=== PATIENT | female | born 1990 | race Caucasian/White ===

== ENCOUNTER 2016-09-23 11:48 | Emergency (ER) | payer BC, OTHER ==
[~2016-09-23] VITALS: Ht 175.3 cm; Wt 71.5 kg
[~2016-09-23 11:48] MED LIST: BCPILLS PO
[2016-09-23 11:55] VITALS: TEMP 36.8; Ht 175.3 cm; Wt 71.5 kg
[2016-09-23] MEDS ORDERED: SODIUM CHLORIDE 0.9% 1000ML 1,000 ML IV STA (12:57)
[2016-09-23] MEDS ORDERED: ONDANSETRON INJ 2 MG/ML 2 ML VIAL IV STA ×2 (12:57→14:55)
[2016-09-23] MEDS ORDERED: MoRPHine SULFATE 4 MG/ML 1 ML CARP\\VIAL IV PRN (13:00)
[2016-09-23 13:06] LABS: BASO % 0.6 %; BASO ABS # 0.03 K/uL (0-0.2); COMPLETE YES; EOS % 7.1 %; HEMATOCRIT 42.5 % (37-47); IG% 0.2 %; LYMPH % 31.7 %; LYMPH ABS # 1.52 K/uL (1.2-3.4); MEAN CELL VOLUME 92.4 fL (80-100); MEAN CORPUSCULAR HEMOGLOBIN 32.2 pg (25-34); MEAN CORPUSCULAR HGB CONC 34.8 g/dl (32-36); MEAN PLATELET VOLUME 9.6 fL (7.4-10.4); MONO % 8.4 %; PLATELET COUNT 199 K/uL (130-400); WHITE BLOOD COUNT 4.79 K/uL (4.8-10.8)
[2016-09-23 13:15] LABS: BUN/CREATININE RATIO 14.8 (10-20); CALCIUM 8.9 mg/dl (8.5-10.1); CREATININE 0.8 mg/dl (0.60-1.20); POTASSIUM 3.8 mmol/L (3.5-5.1)
--- NOTE | 2016-09-23 13:32 | DIAGNOSTIC IMAGING REPORT ---
CHEST AND ABDOMEN 2 VIEWS HISTORY: Generalized abdominal pain. COMPARISON: Abdomen and pelvis CT 03/04/2015. FINDINGS: The lungs are clear. The cardiomediastinal silhouette is within normal limits. There is no pneumoperitoneum or pneumatosis. The bowel gas pattern is unremarkable. No evidence for bowel obstruction. Calcifications in the deep pelvis favor phleboliths. There is also suture material within the right lower quadrant prior appendectomy. No renal calculi. Gas-filled 4.8 x 3.9 cm structure within the deep pelvis which may represent vaginal or rectal foreign body. This could represent a contraceptive device. IMPRESSION: No acute cardiopulmonary process. No evidence for bowel obstruction. Gas-filled 4.8 x 3.9 cm structure within the deep pelvis which may represent vaginal or rectal foreign body. This could represent a contraceptive device. Clinical correlation recommended. Electronically signed by: Kulwinder Montoya M.D. 09/23/2016 1:31 PM Dictated Date/Time: 09/23/2016 1:24 PM
[2016-09-23 13:40] LABS: PREG INTERNAL NEGATIVE QC NEG CLEAR BACKGROUND; PREG INTERNAL POSITIVE QC POS CONTROL LINE
[2016-09-23 13:41] LABS: URINE APPEARANCE CLEAR (CLEAR); URINE BILIRUBIN NEG (NEG); URINE COLOR YELLOW; URINE NITRITE NEG (NEG); URINE SPECIFIC GRAVITY 1.021 (1.000-1.030); UROBILINOGEN NEG (NEG)
[2016-09-23 13:48] LABS: MANUAL MICROSCOPIC REQUIRED? NO; REVIEW REQ? NO
[2016-09-23] MEDS ORDERED: MoRPHine SULFATE 10 MG/ML CARP/VIAL IV STA (14:03)
[2016-09-23] MEDS ORDERED: OPTIRAY 320 IV PRN (15:45)
--- NOTE | 2016-09-23 16:57 | DIAGNOSTIC IMAGING REPORT ---
CT ABD/PELVIS IV AND ORAL CONT CLINICAL HISTORY: acute left-sided abdominal pain COMPARISON STUDY: 03/04/2015 TECHNIQUE: Following the IV administration of 119 mL of Optiray-320, CT scan of the abdomen and pelvis was performed from the lung bases to the proximal femurs. Images are reviewed in the axial, sagittal, and coronal planes. IV contrast was administered without complication. CT DOSE: 346.81 mGy.cm FINDINGS: Lower chest: The heart is normal in size and configuration, without pericardial effusion. The lung bases and pleural spaces are clear. Liver: The contrast-enhanced liver is normal in size, contour, and attenuation. There is no intrahepatic biliary ductal dilatation. The hepatic veins and portal veins are patent. Gallbladder: Unremarkable. Spleen: Normal in size and attenuation. Pancreas: Unremarkable. Adrenal glands: Unremarkable. Kidneys: There is symmetric renal cortical enhancement. The kidneys are normal in size without hydronephrosis. Bowel: There are no transition zones indicate bowel obstruction. By history the appendix is absent. There is no acute diverticulitis. There is no pathologic bowel wall thickening. Peritoneum: No free air is visualized. There is minimal free pelvic fluid likely physiologic. Vasculature: The abdominal aorta is normal in course and caliber. Adenopathy: None. Pelvic viscera: There is an indwelling tampon. No pathologic ovarian masses are visualized. Skeletal structures: No destructive osseous lesions are seen. IMPRESSION: 1. No acute intra-abdominal or pelvic findings 2. No evidence of bowel obstruction. No evidence of free air 3. No acute inflammatory changes Electronically signed by: Kevin Keys M.D. 09/23/2016 4:56 PM Dictated Date/Time: 09/23/2016 4:52 PM
[2016-09-23] MEDS ORDERED: ACETAMINOPHEN 500 MG TAB PO ONE (17:21)
[2016-09-23 17:36] VITALS: BP 107/68; PULSE 73; O2SAT 100
[2016-09-23] MEDS ORDERED: NURSING VERBAL MED ORDER ONE (17:45)
--- NOTE | 2016-09-24 10:10 | EMERGENCY ROOM VISIT NOTE ---
ED Visit Note First contact with patient: 12:27 Chief Complaint: Abdominal pain. History of Present Illness: Ms. Staley is a 26 year-old white female who ambulates into the ED accompanied by male friend complaining left mid to upper quadrant abdominal pain. Historically patient reports she is status post appendectomy. Patient reports she was in her [facility] provider's office today Dr. Champagne and was referred to the ED for acute onset of abdominal pain that started 2 days ago for further evaluation and care. Patient reports a acute onset of left upper quadrant abdominal pain that started approximately 2 days ago. Since that time the pain has been constant. The pain is currently described as sharp. The pain is radiating minimally radiating into the back. She rates her discomfort 4/10 at rest. The pain worsens with ambulation and after eating. Her pain is slightly improved when she is lying semierect and still. She has been taken for [id number] pain pain without relief. Associated with the pain there has been chills, nausea, one episode of vomiting , 4-5 episodes of watery stools and a mild decreased appetite. Patient denies fevers, sweats, skin eruptions, skin color changes, upper respiratory tract symptoms, shortness of breath, chest pain, constipation, rectal bleeding, black/tarry stools, urinary symptoms, hematuria, vaginal bleeding, vaginal discharge, back/flank pain. Review of Systems: As noted above in history of present illness. All body systems were reviewed and found to be negative as noted above. Past Medical History: As noted above, asthma. Current Medications: control. Allergies to Medications: Patient denies. Social History: Patient is not employed; she feels safe in her home environment ; she denies tobacco use and admits to alcohol use. Physical Examination: Vital Signs: Date Time Temp Pulse Resp B/P Pulse Ox O2 Delivery O2 Flow Rate FiO2 09/23/16 17:36 73 16 107/68 100 Room Air 09/23/16 16:58 72 16 111/71 97 Room Air 09/23/16 15:00 73 16 102/67 98 Room Air 09/23/16 13:31 69 16 126/82 98 Room Air 09/23/16 11:55 36.8 86 17 110/86 98 Room Air GENERAL: 26-year-old female in mild to moderate distress due to pain, nontoxic- appearing, afebrile and hemodynamically stable. NEUROLOGICAL: Awake, alert and oriented to person, place and time. Answering questions appropriately and following commands. Normal gait. Good hand eye coordination. SKIN: Warm, dry and pink. No soft tissue eruptions or trauma noted. HEENT: Atraumatic and normocephalic. PERRL. Sclera white and conjunctiva pink. Oral cavity moist and pink. Pharynx is nonerythematous or edematous. Speech normal. No lymphadenopathy. Trachea midline. No jugular venous distention. BACK: No tenderness over the bony spine. No CVA tenderness. THORAX: Lungs sounds are clear to auscultation and equal bilaterally with symmetrical chest wall. No wheezing, rales or rhonchi. No crepitus, tenderness , subcutaneous air or deformities noted. HEART: Regular rate and rhythm. No gallops, rubs or murmurs are appreciated. ABDOMEN: Flat and soft with diffuse abdominal tenderness more prominent in the left mid and upper quadrants area with minimal guarding. Decreased bowel sounds in all quadrants. No rigidity or organomegaly. EXTREMITIES: Moves all extremities well on command and with purpose. All distal neurovascular statuses are intact and equal bilaterally. ED Course: Patient is assessed as noted above. Laboratory Testing: Test 09/23/16 12:10 09/23/16 13:35 Range/Units White Blood Count 4.79 4.8-10.8 K/uL Red Blood Count 4.60 4.2-5.4 M/uL Hemoglobin 14.8 12.0-16.0 g/dL Hematocrit 42.5 37-47 % Mean Corpuscular Volume 92.4 80-100 fL Mean Corpuscular Hemoglobin 32.2 25-34 pg Mean Corpuscular Hemoglobin Concent 34.8 32-36 g/dl Platelet Count 199 130-400 K/uL Mean Platelet Volume 9.6 7.4-10.4 fL Neutrophils (%) (Auto) 52.0 % Lymphocytes (%) (Auto) 31.7 % Monocytes (%) (Auto) 8.4 % Eosinophils (%) (Auto) 7.1 % Basophils (%) (Auto) 0.6 % Neutrophils # (Auto) 2.49 1.4-6.5 K/uL Lymphocytes # (Auto) 1.52 1.2-3.4 K/uL Monocytes # (Auto) 0.40 0.11-0.59 K/uL Eosinophils # (Auto) 0.34 0-0.5 K/uL Basophils # (Auto) 0.03 0-0.2 K/uL RDW Standard Deviation 40.3 36.4-46.3 fL RDW Coefficient of Variation 12.0 11.5-14.5 % Immature Granulocyte % (Auto) 0.2 % Immature Granulocyte # (Auto) 0.01 0.00-0.02 K/uL Sodium Level 135 136-145 mmol/L Potassium Level 3.8 3.5-5.1 mmol/L Chloride Level 101 98-107 mmol/L Carbon Dioxide Level 27 21-32 mmol/L Anion Gap 7.0 3-11 mmol/L Blood Urea Nitrogen 12 7-18 mg/dl Creatinine 0.80 0.60-1.20 mg/dl Est Creatinine Clear Calc Drug Dose 112.4 ml/min Estimated GFR () 118.8 Estimated GFR (Non- 102.5 BUN/Creatinine Ratio 14.8 10-20 Random Glucose 86 70-99 mg/dl Calcium Level 8.9 8.5-10.1 mg/dl Total Bilirubin 0.5 0.2-1 mg/dl Direct Bilirubin 0.1 0-0.2 mg/dl Aspartate Amino Transf (AST/SGOT) 14 15-37 U/L Alanine Aminotransferase (ALT/SGPT) 19 12-78 U/L Alkaline Phosphatase 50 45-117 U/L Total Protein 7.8 6.4-8.2 gm/dl Albumin 3.8 3.4-5.0 gm/dl Lipase 198 73-393 U/L Human Chorionic Gonadotropin, Qual NEG NEG Urine Color YELLOW Urine Appearance CLEAR CLEAR Urine pH 8.0 4.5-7.5 Urine Specific [place] 1.021 1.000-1.030 Urine Protein NEG NEG Urine Glucose (UA) NEG NEG Urine Ketones NEG NEG Urine Occult Blood NEG NEG Urine Nitrite NEG NEG Urine Bilirubin NEG NEG Urine Urobilinogen NEG NEG Urine Leukocyte Esterase NEG NEG Patient was not able to give a stool study for testing. Acute Abdominal X-Ray Series: Was read by myself and the radiologist and shows a normal-appearing chest with infiltrations, effusions or pneumothorax. Normal heart silhouette and bony anatomy. Abdominal component shows a nonspecific gas pattern with no signs of bowel obstruction. No pneumoperitoneum or pneumatosis. Radiologist noted calcifications in the deep pelvis and a structure within the deep pelvis; question the patient about a structure and she reported she is currently menstruating and this was a menstrual cup. Contrast Abdominal/Pelvic CT: Was reviewed by myself and read by the radiologist and shows no acute abdominal intra-abdominal or pelvic findings, no evidence of bowel obstruction or free air and no inflammatory changes. Patient was hydrated with normal saline and she received a total of 10 mg of morphine IV for pain and 8 mg of Zofran IV for nausea. Additional just prior to discharge patient reported she had a mild headache and was given 1 g of acetaminophen by mouth. Patient's case was reviewed with Dr. Rojas; we agreed on diagnostic approach, treatment, disposition and plan. Patient was educated about cristi's findings and instructed on her treatment plan; she verbalizes understanding and agreement with this plan. Clinical Impression: Acute left upper quadrant abdominal pain. Decision-Making: Initially my differential diagnosis I considered constipation, bowel obstruction, perforated viscus, pancreatitis, splenomegaly, kidney stone, pyelonephritis and other causes. Prior to discharge patient did question the heavily about the possibilities of gastric ulcer and I informed her that was more of a visual diagnosis and would be concerning if her hemoglobin and hematocrit was decreased or she was vomiting blood or have bloody stools. In her discharge I did encourage her to follow-up with her family doctor for possible gastroenterology EGD or colonoscopy. Disposition: Discharged home in stable condition accompanied by a male friend; prior to departure she was reassessed and ported her pain was the same. I did reevaluate her stomach and she was less tender throughout the abdomen but still had a prominence of left sided upper quadrant pain. Plan: Patient was encouraged to use acetaminophen every 6 hours as needed for pain and to avoid NSAIDs for concerning ulcer. Patient was encouraged to use johy-[id number]-pdrioby Zantac twice a day. Patient was encouraged to avoid stomach irritants. Patient was encouraged to contact her PCP in the morning and request follow-up care and treatment and referral to gastroenterology. Patient was encouraged return ED for worsening pain, fevers, vomiting, bloody stools, bloody vomitus or any new/concerning symptoms.
[2017-01-24] MEDS ORDERED: METH1TAB81 PO (14:01)
[2017-01-24] MEDS ORDERED: AMOX875T PO (14:01)
== END 2016-09-23 17:38 | disposition home or self-care (01) ==
LOC: C.EDB 11:49 → C.EDA 17:38
DX: R10.12 Left upper quadrant pain (principal); J45.909 Unspecified asthma, uncomplicated; Z79.3 Long term (current) use of hormonal contraceptives

== ENCOUNTER 2016-11-04 12:20 | Emergency (ER) | payer OTHER ==
[~2016-11-04] VITALS: Ht 175.3 cm; Wt 73.1 kg
[2016-11-04 12:39] VITALS: TEMP 36.4; Ht 175.3 cm; Wt 73.1 kg
[2016-11-04] MEDS ORDERED: METH4PAK PO (13:14)
[2016-11-04] MEDS ORDERED: AMOX875T PO (13:14)
[2016-11-04] MEDS ORDERED: OFLO0.3D4 OT (13:14)
[2016-11-04] MEDS ORDERED: HYDR-5688 PO (13:14)
--- NOTE | 2016-11-04 13:15 | EMERGENCY ROOM VISIT NOTE ---
ED Visit Note First contact with patient: 12:57 CHIEF COMPLAINT: Earache HISTORY OF PRESENT ILLNESS: This 26-year-old female presents to the emergency department complaining of pain in the left ear. The patient states that she has chronic ear infections and has had 4 ear infections in the last one year. She states that she has associated left-sided sore throat and nasal congestion. She denies any cough or fevers. They rate the pain as sharp and 8/10. The pain is in the left ear. She does report difficulty hearing out of the left ear. She has been taking ibuprofen and Tylenol for pain without relief. REVIEW OF SYSTEMS: A 6 system review of systems was completed with positives and pertinent negatives listed in the HPI. ALLERGIES: No known drug allergies MEDICATIONS: control pills PMH: Chronic ear infections. SH: The patient lives locally with family. PHYSICAL EXAM: Vital Signs: Reviewed Nurse's notes, temperature 36.4C orally. GENERAL: This is a 26-year-old female, in no acute distress, well-developed, well-nourished. SKIN: Normal. HEART: Regular rate and rhythm without murmurs gallops or rubs. LUNGS: Clear to auscultation and breath sounds equal, no wheezes, rales, or rhonchi. MOUTH: The pharynx is not inflamed and the tonsils are not enlarged. The airway is patent. EARS: There is purulent drainage from the left ear. The external auditory canal is not swollen or erythematous. The tympanic membrane is obscured by the purulent drainage. The right tympanic membrane is pearly duncan without erythema or effusion. The right external auditory canal is clear. LYMPH: There is no lymphadenopathy. ED COURSE: I examined the patient. The patient appears to have an otitis media with perforation of the tympanic membrane. She will be placed on Floxin otic drops, Augmentin and a Medrol Dosepak. She was given [place] for pain. The PDMP was queried and no red flags were identified. She was given information for follow-up with ENT. She will return for any new/concerning symptoms. She verbalized understanding and was discharged home in good condition. DIAGNOSIS: Left otitis media with perforation Problem List Surgical Problems: (1) No significant past surgical history Status: Chronic Current/Historical Medications Scheduled Amoxicillin & Pot Clavulanate (Augmentin 875-125 mg), 1 TAB PO BID Control Pills ( Control Pills), 1 TAB PO DAILY Methylprednisolone (Medrol Dosepak), 0 PO DAILY Ofloxacin (Otic) (Floxin Otic), 5 DROPS OT BID Scheduled PRN Hydrocodone/Acetaminophen 5MG/325MG ([place] 5MG/325MG), 1-2 TABLET PO Q4H PRN for Pain Allergies Coded Allergies: No Known Allergies (Unverified , 09/23/16) Vital Signs Date Time Temp Pulse Resp B/P Pulse Ox O2 Delivery O2 Flow Rate FiO2 11/04/16 13:27 65 16 124/74 99 Room Air 11/04/16 12:39 36.4 76 18 119/68 99 Room Air Departure Information Impression Primary Impression: Acute otitis media with perforated tympanic membrane Dispostion Home / Self-Care Condition GOOD Prescriptions Methylprednisolone (MEDROL DOSEPAK) 4 Mg Facundo 0 PO DAILY, #1 PKT Prov: Radha Brownlee PA-C 11/04/16 Hydrocodone/Acetaminophen 5MG/325MG ([place] 5MG/325MG) Tab 1-2 TABLET PO Q4H Y for Pain, #10 TAB For Initial Treatment Prov: Radha Brownlee PA-C 11/04/16 Amoxicillin & Pot Clavulanate (Augmentin 875-125 mg) 1 Tab Tab 1 TAB PO BID for 12 Days, #24 TAB Prov: Radha Brownlee PA-C 11/04/16 Ofloxacin (Otic) (FLOXIN OTIC) 0.3 % Gilbert 5 DROPS OT BID, #10 ML Prov: Radha Brownlee PA-C 11/04/16 Referrals No Doctor, Assigned (PCP) Page Stock M.D. Patient Instructions [facility] Additional Instructions You were prescribed Augmentin to be taken as prescribed. This is an antibiotic. All antibiotics have the potential to cause diarrhea. Stop this medication and contact a medical provider if you were to develop any significant adverse side effects including: wheezing, shortness of breath, passing out, vomiting, or a diffuse rash. Always take antibiotics as directed and COMPLETE the ENTIRE course regardless of the improvement of your symptoms. Floxin drops as prescribed. You have been prescribed a Medrol Dosepak. This is a steroid which will help decrease your inflammation. Take the medicine as prescribed. Take the ENTIRE 6 day course of the steroids. You have been prescribed [place] to be used for pain control. Take 1-2 tablets every 4-6 hours as needed for pain. This is a narcotic medication. You cannot drive or consume alcohol while on this medicine. This medicine should only be used for pain that cannot be controlled with [id number] pain medicines. For pain control, you can use the following rvhe-pqu-dnkeblq medicines (if >12 yo): - Regular strength (325mg/tab) Tylenol (acetaminophen) 2 tabs every 4-6 hours as needed. Do not exceed 12 tablets in a 24 hour period. Avoid taking more than 4 grams (4000 mg) of Tylenol per day. This includes any other sources of acetaminophen you may take on a regular basis. - Regular strength (200 mg/tab) Advil (ibuprofen) 1-2 tabs every 4-6 hours as needed. Do not exceed a dose of 3200 mg per day. Follow-up with ENT. Return for any new/concerning symptoms. Problem Qualifiers Primary Impression: Acute otitis media with perforated tympanic membrane Laterality: left Qualified Codes: H66.92 - Otitis media, unspecified, left ear; H72.92 - Unspecified perforation of tympanic membrane, left ear
[2016-11-04 13:27] VITALS: BP 124/74; PULSE 65; O2SAT 99
[2017-01-24] MEDS ORDERED: AMOX875T PO (14:01)
[2017-01-24] MEDS ORDERED: METH1TAB81 PO (14:01)
[2017-06-08] MEDS ORDERED: KRV28 PO (03:57)
[2017-06-08] MEDS ORDERED: FLUT0.15 NAE (03:57)
[2017-06-15] MEDS ORDERED: PANT40TA PO (08:09)
== END 2016-11-04 13:27 | disposition home or self-care (01) ==
LOC: C.EDB 12:22 → C.EDD 13:27
DX: H66.92 Otitis media, unspecified, left ear (principal); H72.92 Unspecified perforation of tympanic membrane, left ear; Z79.899 Other long term (current) drug therapy

== ENCOUNTER → 2017-01-27 | Outpatient (CLI) | payer OTHER ==
[~2017-01-27] MED LIST changes: +AMOX875T PO; +METH1TAB81 PO
--- NOTE | 2017-01-27 14:04 | DIAGNOSTIC IMAGING REPORT ---
Study: Fusion CT of the sinuses. HISTORY: Allergic tinnitus. Deviated nasal septum. FINDINGS: 1.5 cm retention cyst base left maxillary sinus. Mild mucosal thickening ethmoid sinuses. High-grade soft tissue narrowing of the neck ostiomeatal units bilaterally. The frontal sinuses are clear. Sphenoid sinuses are clear. No evidence for bony destructive process. IMPRESSION: 1. 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 2. Mild ethmoid mucosal thickening. 3. 1.5 cm mucous retention cyst base left maxillary sinus. 4. Remaining sinuses are considered clear with no bony destructive process. Electronically signed by: Richard Flynn M.D. 01/27/2017 2:03 PM Dictated Date/Time: 01/27/2017 2:00 PM
[2017-01-27 14:37] LABS: BASO % 0.5 %; BASO ABS # 0.03 K/uL (0-0.2); COMPLETE YES; EOS % 7.7 %; IG% 0.2 %; LYMPH % 33.5 %; LYMPH ABS # 1.95 K/uL (1.2-3.4); MEAN CELL VOLUME 92.5 fL (80-100); MEAN CORPUSCULAR HEMOGLOBIN 31.3 pg (25-34); MEAN CORPUSCULAR HGB CONC 33.8 g/dl (32-36); MEAN PLATELET VOLUME 9.9 fL (7.4-10.4); NEUT % 46.1 %; PLATELET COUNT 223 K/uL (130-400); RED BLOOD COUNT 4.54 M/uL (4.2-5.4); WHITE BLOOD COUNT 5.82 K/uL (4.8-10.8)
[2017-01-27 14:57] LABS: PARTIAL THROMBOPLASTIN RATIO 0.9; PROTHROMBIN TIME (PATIENT) 10.7 SECONDS (9.0-12.0)
[2017-01-27 15:05] LABS: POTASSIUM 3.7 mmol/L (3.5-5.1)
== END | disposition home or self-care (01) ==
LOC: C.CTS 13:35
PROVIDERS: ATTEND Physician Assistant
DX: Z01.818 Encounter for other preprocedural examination (principal); J34.2 Deviated nasal septum; J35.2 Hypertrophy of adenoids; J30.9 Allergic rhinitis, unspecified; J34.3 Hypertrophy of nasal turbinates

== ENCOUNTER → 2017-02-04 | Day surgery (SDC) | payer OTHER ==
[2017-01-24 14:01] VITALS: Ht 172.7 cm; Wt 68.2 kg
[~2017-02-04] VITALS: Ht 172.7 cm; Wt 68.2 kg
[~2017-02-04] MED LIST changes: +ATROPINE SULFATE 0.1 MG/ML 5ML SYR IV PRN; +BACITRACIN/POLYMYXIN B OINT 15 GM TUBE EXT ONE; +CEFAZOLIN 2000 MG/60 ML D5W IV SCH; +DEXAMETHASONE SOD INJ 4 MG/ML VIAL IV PRN; +DEXAMETHASONE SOD INJ 4 MG/ML VIAL ONE; +EpHEDrine SULFATE INJ 50 MG/ML AMP IV PRN; +EpINEphrine INJ 1MG/ML AMP 1 MG/ML AMP ONE; +FENTANYL CITRATE INJ 50 MCG/1 ML 2 ML VIAL IV PRN; +FENTANYL CITRATE INJ 50 MCG/1 ML 2 ML VIAL ONE; +HYDROCODONE/ACETAMOPHEN 5/325MG TAB PO PRN; +KETOROLAC TROMETHAMINE 30 MG/ML VIAL IV. PRN; +LABETALOL HCL IV 5 MG/ML 20ML IV PRN; +LACTATED RINGER'S 1000ML 1,000 ML IV SCH; +LIDOCAINE 2% 20 MG/ML 5ML SYR ONE; +LIDOCAINE 4% MPF SOAK 5 ML = 1 DOSE TOP ONE; +LIDOCAINE/EPINEPHRINE 1% INJ 50 ML VIAL ONE; +METOCLOPRAMIDE HCL INJ 5 MG/ML 2 ML VIAL IV PRN; +METOCLOPRAMIDE HCL INJ 5 MG/ML 2 ML VIAL ONE; +MIDAZOLAM HCL 1 MG/ML 2ML VIAL ONE; +MISSING PHYSICIAN SIGNATURE ON ORDER SCH; +MoRPHine SULFATE 10 MG/ML CARP/VIAL IV PRN; +OFLOXACIN 0.3% OP SOLN 5 ML BTL ONE; +ONDANSETRON INJ 2 MG/ML 2 ML VIAL IV PRN; +ONDANSETRON INJ 2 MG/ML 2 ML VIAL ONE; +OXYMETAZOLINE HCL 0.05% NA SPR 15 ML BTL NAE SCH; +OXYMETAZOLINE HCL 0.05% NA SPR 15 ML BTL PRN; +PHENYLEPHRINE 100MCG/ML 5ML SYR IV PRN; +PROPOFOL IV EMULSION 10 MG/ML 20 ML VIAL IV ONE
--- NOTE | 2017-02-04 10:47 | History & Physical Bridge - [place] ---
H&P Re-Evaluation Bridge Note: I have examined the patient, reviewed the History & Physical and in the interval since the performance of the History & Physical I have noted the following changes of clinical significance: No changes noted
--- NOTE | 2017-02-04 12:41 | Discharge Instructions ---
Discharge Instructions Date of Service Feb 04, 2017. Admission Reason for Admission: Left Hearing Loss, Adenoid Hypertrophy, Deviated S Discharge Discharge Diagnosis / Problem: SAME Discharge Goals Goal(s): Therapeutic intervention Activity Recommendations Activity Limitations: as noted below 1. DRY EAR PRECAUTIONS WHILE THE TUBES ARE IN PLACE 2. NO NOSE BLOWING FOR 2 WEEKS 3. LIGHT ACTIVITY FOR 2 WEEKS 4. NO DRIVING WHILE ON NORCO . Current Hospital Diet Patient's current hospital diet: Discharge Diet Recommended Diet: Regular Diet Procedures Procedures Performed: Bilateral Myringotomy And Tube Placement, Adenoidectomy, Image-Guided Bilateral Endoscopic Sinus Surgery, Septoplasty And Bilateral Inferior Turbinate Reduction Pending Studies Studies pending at discharge: no Medical Emergencies . Who to Call and When: Medical Emergencies: If at any time you feel your situation is an emergency, please call 911 immediately. . Non-Emergent Contact Non-Emergency issues call your: Surgeon . . "Provider Documentation" section prepared by Jamal Sosa. . VTE Core Measure Inpt VTE Proph given/why not?: SCD's
--- NOTE | 2017-02-04 12:58 | [facility] Operative Report ---
Operative Report Operative Date Feb 04, 2017. Pre-Operative Diagnosis Adenoid hypertrophy Acquired deviated nasal septum Allergic Rhinitis Hypertrophy of nasal turbinates Eustachian tube dysfunction, bilateral Chronic Sinusitis Post-Operative Diagnosis same as preop Procedure(s) Performed Bilateral Myringotomy And Tube Placement, Adenoidectomy, Image-Guided Bilateral Endoscopic Sinus Surgery consisting of bilateral maxillary antrostomies, bilateral complete ethmoidectomies, and bilateral frontal sinusotomies, Septoplasty And Bilateral Inferior Turbinate Reduction Surgeon Dr. Sosa Die Stamping Press Operator Surgeon(s) none Estimated Blood Loss 45ml Findings 1. Right serous middle ear effusion 2. Thickened and retracted left tympanic membrane with dry middle ear space 3. Normal palate 4. 3+ adenoids 5. Left septal deviation 6. Right greater than left inferior turbinate hypertrophy 7. Polypoid mucosal thickening involving the bilateral frontal, ethmoid, maxillary sinuses 8. Severe mucosal thickening likely due to allergic rhinitis Specimens none Anesthesia Gen. endotracheal Complication(s) None Indications The patient is a pleasant 26-year-old female with a history of severe allergic rhinitis and associated chronic otitis media with effusion, eustachian tube dysfunction, and chronic sinusitis which was refractory to maximal medical therapy. Patient CT scan of sinuses showed bilateral frontal ethmoid recess and ostia meatal complex obstruction with mucosal thickening involving the bilateral frontal, ethmoid, maxillary sinuses in addition to left septal deviation and right greater than left severe inferior turbinate hypertrophy. Patient also had evidence of right otomastoiditis on the CT scan. She has bilateral right greater than left hearing loss. She presents for the above- mentioned procedures on an outpatient elective basis. Description of Procedure After informed consent had been obtained from the patient, the patient was wheeled to the operating room and placed on the operating room table in the supine position. Monitors were placed after induction of general endotracheal anesthesia, the patient's head was gently turned to the left and a speculum was inserted into the right external auditory canal. The operating microscope was wheeled in and used to perform the procedure. A myringotomy knife was used to make a radial incision in the anterior inferior quadrant of the tympanic membrane in the middle ear space was suctioned free of a serous middle ear effusion. A silicone Ko tympanostomy tube was then placed. Floxin drops were instilled into the middle ear space and a cotton ball was placed into the conchal bowl. The left side was addressed in a similar fashion however on this side there was no middle ear effusion and the tympanic membrane was noted to be thickened and sclerotic with significant retraction. The table was then turned 90 and the patient's head and neck were gently extended. Antibiotic ointment was applied to the lips and a mouthgag was carefully inserted, opened, and stabilized on a roll of towels. The palate was inspected and this was found to be normal. A catheter was then inserted to the right nasal cavity and this was used to elevate the soft palate and uvula. A laryngeal mirror was used to inspect the nasopharynx in the intraoperative findings were 3+ adenoid tissue. This was removed using suction Bovie electrocautery while achieving hemostasis simultaneously. The catheter and then mouthgag were carefully removed. The table was then turned back in the neutral position and the patient was prepped in usual fashion for image guided sinus surgery. The ePod Solar headset was then placed over the forehead and was registered, calibrated, and verified and used for the frontal sinus portion of the procedure. Lidocaine and epinephrine pledgets were then placed into the bilateral nasal cavities and pressure applied. The left-sided pledget was first removed and a Keene elevator was used to medialize the left middle turbinate. Left middle turbinate as well as the lateral nasal wall and uncinate process were then injected with 1% lidocaine with 1-100,000 epinephrine. Of note there was severe mucosal congestion. A pledget was then placed into the left middle meatus. The right side was then addressed in a similar fashion. The left-sided pledget was removed. There was polypoid tissue involving the left middle turbinate which was removed using powered instrumentation. A Keene elevator and straight Greg-Cut forceps is then used to perform an uncinectomy. The natural ostia of the maxillary sinus was identified and this was enlarged anteriorly, inferiorly, and posteriorly using backbiting forceps and powered instrumentation. Of note there was severe polypoid mucosal thickening involving the sinus as well as Michelle cells that were impinging on the ostomy and a complex which were removed using powered instrumentation. A complete ethmoidectomy was then performed using powered instrumentation. Using a curved frontal sinus suction, the frontal sinus was then cannulated. Polypoid tissue was removed using powered instrumentation to perform a left frontal sinusotomy. A pledget was then placed into the left ethmoid cavity. The right side was then addressed in a similar fashion with similar intraoperative findings. The pledgets were then removed. The nasal septum was injected with 1% lidocaine with 1-100,000 epinephrine. A #15 scalpel was used to make a left [place] incision through which the left-sided mucoperichondrial and mucoperiosteal flap was elevated. A #15 scalpel was then used to incise the quadrangular cartilage with care to preserve a 1.5 cm dorsal and caudal strut, and the right-sided mucoperichondrial and mucoperiosteal flap was elevated. A Hal swivel knife was then used to remove deviated portions the quadrangular cartilage. A V-shaped osteotome, mallet, and Ron forceps is used to remove a large septal spur which is impinging on the airway posteriorly on the left-hand side. The septal cavity was then suctioned. The left [place] incision was closed with several simple interrupted 4-0 chromic sutures. A 4-0 plain gut suture on a Nic needle was then used to perform a quilting stitch of the mucoperichondrial and mucoperiosteal flaps bilaterally to help prevent septal hematoma. A Latham elevator was then used to infracture and subsequently outfractured the inferior turbinates bilaterally. These were then injected with 1% lidocaine with 1-100,000 epinephrine. A 2.0 mm turbinate blade using powered instrumentation was then used to perform bilateral inferior turbinoplasties in a submucosal fashion. The sinonasal cavities and nasopharynx were then suctioned. MeroGel dressing was placed into the bilateral ethmoid cavities and middle meatus. An orogastric tube was placed and the stomach was suctioned free of apparent stomach contents. This marked the end of the case. The patient tolerated the procedure well and there were no apparent complications. The patient was extubated and transferred to the recovery room in stable condition. I attest to the content of the Intraoperative Record and any orders documented therein. Any exceptions are noted below.
--- NOTE | 2017-02-04 13:32 | Anesthesia Progress Nt - [facility] ---
Anesthesia Post Op Note Date & Time Feb 04, 2017 at 13:31 Vital Signs Pain Intensity: 0 Vital Signs Past 12 Hours Date Time Temp Pulse Resp B/P (MAP) Pulse Ox O2 Delivery O2 Flow Rate FiO2 02/04/17 13:18 36.7 77 16 123/74 (90) 100 Room Air 02/04/17 13:15 36.4 02/04/17 13:13 68 13 02/04/17 13:13 66 13 100 02/04/17 13:10 133/70 (83) 02/04/17 13:08 73 15 02/04/17 13:08 73 15 100 02/04/17 13:07 Room Air 02/04/17 13:06 116/68 (92) 02/04/17 13:03 67 3 100 02/04/17 13:03 67 3 02/04/17 13:00 125/76 (85) 02/04/17 12:58 71 3 02/04/17 12:58 72 3 100 02/04/17 12:55 123/73 (85) 02/04/17 12:53 69 0 100 02/04/17 12:53 70 0 02/04/17 12:51 129/76 (92) 02/04/17 12:48 81 22 100 02/04/17 12:48 81 22 02/04/17 12:46 134/71 (98) 02/04/17 12:43 36.4 104 12 134/71 100 Diffusion Mask 5 02/04/17 10:14 36.7 86 20 111/73 (86) 96 Room Air Notes Mental Status: alert / awake / arousable, participated in evaluation Pt Amnestic to Procedure: Yes Nausea / Vomiting: adequately controlled Pain: adequately controlled Airway Patency, RR, SpO2: stable & adequate BP & HR: stable & adequate Hydration State: stable & adequate Anesthetic Complications: no major complications apparent
[2017-02-04 14:07] VITALS: BP 110/71; PULSE 73; O2SAT 100
== END | disposition home or self-care (01) ==
LOC: X.SURG 09:39
DX: J35.2 Hypertrophy of adenoids (principal); J34.2 Deviated nasal septum; J34.3 Hypertrophy of nasal turbinates; J32.9 Chronic sinusitis, unspecified; H69.83 Other specified disorders of Eustachian tube, bilateral; J30.9 Allergic rhinitis, unspecified; J45.909 Unspecified asthma, uncomplicated; H90.11 Conductive hearing loss, unilateral, right ear, with unrestricted hearing on the contralateral side; Z79.899 Other long term (current) drug therapy

== ENCOUNTER → 2017-05-09 | Outpatient (CLI) | payer OTHER ==
[~2017-05-09] MED LIST changes: -ATROPINE SULFATE 0.1 MG/ML 5ML SYR IV PRN; -BACITRACIN/POLYMYXIN B OINT 15 GM TUBE EXT ONE; -CEFAZOLIN 2000 MG/60 ML D5W IV SCH; -DEXAMETHASONE SOD INJ 4 MG/ML VIAL IV PRN; -DEXAMETHASONE SOD INJ 4 MG/ML VIAL ONE; -EpHEDrine SULFATE INJ 50 MG/ML AMP IV PRN; -EpINEphrine INJ 1MG/ML AMP 1 MG/ML AMP ONE; -FENTANYL CITRATE INJ 50 MCG/1 ML 2 ML VIAL IV PRN; -FENTANYL CITRATE INJ 50 MCG/1 ML 2 ML VIAL ONE; -HYDROCODONE/ACETAMOPHEN 5/325MG TAB PO PRN; -KETOROLAC TROMETHAMINE 30 MG/ML VIAL IV. PRN; -LABETALOL HCL IV 5 MG/ML 20ML IV PRN; -LACTATED RINGER'S 1000ML 1,000 ML IV SCH; -LIDOCAINE 2% 20 MG/ML 5ML SYR ONE; -LIDOCAINE 4% MPF SOAK 5 ML = 1 DOSE TOP ONE; -LIDOCAINE/EPINEPHRINE 1% INJ 50 ML VIAL ONE; -METOCLOPRAMIDE HCL INJ 5 MG/ML 2 ML VIAL IV PRN; -METOCLOPRAMIDE HCL INJ 5 MG/ML 2 ML VIAL ONE; -MIDAZOLAM HCL 1 MG/ML 2ML VIAL ONE; -MISSING PHYSICIAN SIGNATURE ON ORDER SCH; -MoRPHine SULFATE 10 MG/ML CARP/VIAL IV PRN; -OFLOXACIN 0.3% OP SOLN 5 ML BTL ONE; -ONDANSETRON INJ 2 MG/ML 2 ML VIAL IV PRN; -ONDANSETRON INJ 2 MG/ML 2 ML VIAL ONE; -OXYMETAZOLINE HCL 0.05% NA SPR 15 ML BTL NAE SCH; -OXYMETAZOLINE HCL 0.05% NA SPR 15 ML BTL PRN; -PHENYLEPHRINE 100MCG/ML 5ML SYR IV PRN; -PROPOFOL IV EMULSION 10 MG/ML 20 ML VIAL IV ONE
--- NOTE | 2017-05-09 09:36 | DIAGNOSTIC IMAGING REPORT ---
RIGHT KNEE 2 VIEWS CLINICAL HISTORY: R52 Whole body [id number] Hypermobility [id number] Polyart COMPARISON: None. DISCUSSION: No fractures or dislocations are visualized. There are no erosive or destructive changes. There is no evidence for soft tissue swelling. IMPRESSION: No bony abnormalities identified. Electronically signed by: Kevin Keys M.D. 05/09/2017 9:34 AM Dictated Date/Time: 05/09/2017 9:34 AM
== END | disposition home or self-care (01) ==
LOC: C.RAD1850 09:02
PROVIDERS: ATTEND Internal Medicine Rheumatology
DX: M25.50 Pain in unspecified joint (principal)

== ENCOUNTER 2017-06-29 17:36 | Emergency (ER) | payer OTHER ==
[~2017-06-29] VITALS: Ht 172.7 cm; Wt 68.8 kg
[~2017-06-29 17:36] MED LIST changes: -AMOX875T PO; -BCPILLS PO; +FLUT0.15 NAE; +KRV28 PO; -METH1TAB81 PO; +PANT40TA PO
[2017-06-29 17:44] VITALS: TEMP 36.7; Ht 172.7 cm; Wt 68.8 kg
--- NOTE | 2017-06-29 19:01 | EMERGENCY ROOM VISIT NOTE ---
History First contact with patient: 18:30 Chief Complaint: ABDOMINAL PAIN Stated Complaint: UPPER ABD PAIN,VOMITING W BLOOD Nursing Triage Summary: Pt reports upper abd pain x 2 hrs. Vomiting. Denies diarrhea. Pt states seen here a couple weeks ago, told to return for worsening s/x. History of Present Illness The patient is a 27 year old female who presents to the Emergency Room with complaints of abdominal pain in the epigastric region that has been intermittent over the last month. It waxes and wanes. Eating seems to make the pain worse. Today the patient had one episode of vomiting. She is concerned because she thought that she saw blood in the emesis. She denies any coffee-ground emesis. Now movements have been normal. Her last one was today. She denies any fever or chills. The patient was seen in the emergency department 2 other times for the same pain. She had a CT scan and blood work. No significant abnormalities were noted. She was started on Protonix, which may have helped slightly. Review of Systems 10 system review performed and negative unless noted in HPI or below Past Medical/Surgical History Surgical Problems: (1) No significant past surgical history Fibromyalgia Family History Patient reports no known family medical history. Social History Smoking Status: Never Smoker Alcohol Use: occasionally Marital Status: single Housing Status: lives with family Occupation Status: employed Current/Historical Medications Scheduled Amoxicillin & Pot Clavulanate (Augmentin 875-125 mg), 1 TAB PO BID Ethinyl Estrad/Desogestrel (Kariva), 1 TAB PO DAILY Fluticasone Propionate (Nasal) (Flonase Allergy Relief), 2 SPRAYS ANGELA BID Pantoprazole (Protonix), 40 MG PO DAILY Physical Exam Vital Signs Date Time Temp Pulse Resp B/P (MAP) Pulse Ox O2 Delivery O2 Flow Rate FiO2 06/29/17 20:41 73 17 107/74 98 Room Air 06/29/17 19:25 85 16 129/75 Room Air 06/29/17 17:44 36.7 87 18 130/80 98 Room Air Physical Exam VITALS: Vitals are noted on the nurse's note and reviewed by myself. Vital signs stable. GENERAL: 27-year-old female, in no acute distress, nondiaphoretic, well- developed well-nourished. SKIN: Multiple tattoos noted. HEAD: Normocephalic atraumatic. MOUTH: Mucous membranes slightly dry NECK: Supple without nuchal rigidity. No JVD. HEART: Regular rate and rhythm without murmurs gallops or rubs. LUNGS: Clear to auscultation bilaterally without wheezes, rales or rhonchi. No accessory muscle use. ABDOMEN: Positive bowel sounds x 4.Soft, , tenderness to palpation in the epigastric region. No organomegaly. No guarding or rebound tenderness. MUSCULOSKELETAL: No muscle atrophy, erythema, or edema noted. Strength 5/5 throughout. NEURO: Patient was alert and oriented to person place and time. Normal sensation to touch. No focal neurological deficits. Medical Decision & Procedures ER Provider Diagnostic Interpretation: Upper quadrant abdominal ultrasound FINDINGS: Pancreas is unremarkable. The liver is also within normal limits without focal mass or intrahepatic biliary ductal dilation. Gallbladder is unremarkable without cholelithiasis, wall thickening or pericholecystic fluid. Sonographic Partida sign reported as negative. The common bile duct is normal, 2 mm. Imaged right kidney is unremarkable measuring 12 cm in length. No hydronephrosis. IMPRESSION: Unremarkable right upper quadrant ultrasound. The above report was generated using voice recognition software. It may contain grammatical, syntax or spelling errors. Electronically signed by: Mason Covarrubias M.D. 06/29/2017 8:44 PM Dictated Date/Time: 06/29/2017 8:42 PM The status of this report is Signed. Draft = Not yet reviewed or approved by Radiologist. Signed = Reviewed and approved by Radiologist. <AttendingPhy></AttendingPhy> <FamilyPhy>Gisel Ramirez D.O.</FamilyPhy> < PrimaryPhy>Gisel Ramirez D.O.</PrimaryPhy> <UnitNumber>[id number]</ UnitNumber> <VisitNumber>[id number]</VisitNumber> <PatientName>MISSAEL LOO </PatientName> <DateOfBirth>1990</DateOfBirth> <Location>[facility]</Location> <ServiceDate>06/29/17</ServiceDate> <MNE>ESINDI</MNE> <OrderingPhy>Rema Rao PA-C</OrderingPhy> <OrderingPhyMNE>f rep Laboratory Results 06/29/17 19:15 Red Blood Count 4.44, Mean Corpuscular Volume 93.5, Mean Corpuscular Hemoglobin 31.1, Mean Corpuscular Hemoglobin Concent 33.3, Mean Platelet Volume 9.9, Neutrophils (%) (Auto) 52.3, Lymphocytes (%) (Auto) 34.1, Monocytes (%) (Auto) 9.0, Eosinophils (%) (Auto) 4.1, Basophils (%) (Auto) 0.3, Neutrophils # (Auto) 4.55, Lymphocytes # (Auto) 2.98, Monocytes # (Auto) 0.79, Eosinophils # (Auto) 0.36, Basophils # (Auto) 0.03 06/29/17 19:15 Test 06/29/17 19:15 06/29/17 19:20 White Blood Count 8.73 K/uL (4.8-10.8) Red Blood Count 4.44 M/uL (4.2-5.4) Hemoglobin 13.8 g/dL (12.0-16.0) Hematocrit 41.5 % (37-47) Mean Corpuscular Volume 93.5 fL (80-100) Mean Corpuscular Hemoglobin 31.1 pg (25-34) Mean Corpuscular Hemoglobin Concent 33.3 g/dl (32-36) Platelet Count 222 K/uL (130-400) Mean Platelet Volume 9.9 fL (7.4-10.4) Neutrophils (%) (Auto) 52.3 % Lymphocytes (%) (Auto) 34.1 % Monocytes (%) (Auto) 9.0 % Eosinophils (%) (Auto) 4.1 % Basophils (%) (Auto) 0.3 % Neutrophils # (Auto) 4.55 K/uL (1.4-6.5) Lymphocytes # (Auto) 2.98 K/uL (1.2-3.4) Monocytes # (Auto) 0.79 K/uL (0.11-0.59) Eosinophils # (Auto) 0.36 K/uL (0-0.5) Basophils # (Auto) 0.03 K/uL (0-0.2) RDW Standard Deviation 42.9 fL (36.4-46.3) RDW Coefficient of Variation 12.5 % (11.5-14.5) Immature Granulocyte % (Auto) 0.2 % Immature Granulocyte # (Auto) 0.02 K/uL (0.00-0.02) Anion Gap 8.0 mmol/L (3-11) Est Creatinine Clear Calc Drug Dose 108.8 ml/min Estimated GFR () 119.7 Estimated GFR (Non- 103.3 BUN/Creatinine Ratio 18.9 (10-20) Calcium Level 8.9 mg/dl (8.5-10.1) Total Bilirubin 0.3 mg/dl (0.2-1) Aspartate Amino Transf (AST/SGOT) 11 U/L (15-37) Alanine Aminotransferase (ALT/SGPT) 19 U/L (12-78) Alkaline Phosphatase 64 U/L (45-117) Total Protein 7.0 gm/dl (6.4-8.2) Albumin 3.4 gm/dl (3.4-5.0) Globulin 3.6 gm/dl (2.5-4.0) Albumin/Globulin Ratio 0.9 (0.9-2) Lipase 421 U/L (73-393) Hepatitis B Surface Antigen NEG (NEG) Hepatitis C Antibody NEG (NEG) Urine Color YELLOW Urine Appearance CLEAR (CLEAR) Urine pH 5.0 (4.5-7.5) Urine Specific [place] 1.024 (1.000-1.030) Urine Protein NEG (NEG) Urine Glucose (UA) NEG (NEG) Urine Ketones NEG (NEG) Urine Occult Blood NEG (NEG) Urine Nitrite NEG (NEG) Urine Bilirubin NEG (NEG) Urine Urobilinogen NEG (NEG) Urine Leukocyte Esterase NEG (NEG) Urine Test NEG (NEG) Medications Administered Medications (Trade) Dose Ordered Sig/Liza Route Start Time Stop Time Status Last Admin Dose Admin Morphine Sulfate (MoRPHine SULFATE INJ) 4 mg Q1H PRN IV 06/29/17 19:00 07/13/17 18:59 06/29/17 20:40 4 MG Ondansetron HCl (Zofran Inj) 4 mg Q2H PRN IV 06/29/17 19:00 07/29/17 18:59 06/29/17 21:07 4 MG ED Course Patient was seen and examined Vital signs including blood pressure were reviewed medications list was verified with patient Labs were obtained, and a saline lock was established The patient was medicated with morphine and Zofran. Imaging was performed and reviewed Upon reassessment, the patient was more comfortable. We discussed the workup. She voiced understanding. The case was also discussed with my supervising physician who is in agreement with my plan. She was given a home pack of oxycodone I reviewed discharge instructions the patient. They voiced understanding and had no further questions. Medical Decision DIFFERENTIAL DIAGNOSIS: Gastroenteritis, Hepatitis, cholecystitis, cholangitis, biliary colic, pancreatitis, appendicitis, inguinal hernia, nephrolithiasis, inflammatory bowel disease, mesenteric adenitis, peptic ulcer disease, GERD, gastritis, pancreatitis,, bowel obstruction, splenic infarct, diverticulitis, mesenteric ischemia, metabolic, peritonitis, among others. This patient is a 27-year-old female that returns to the emergency department complaining of epigastric abdominal pain and vomiting. She was concerned that there was a small amount of blood in the vomit. On exam, she is nontoxic in appearance. She is tender to palpation in the epigastric region. There is no guarding or rebound tenderness. There is no leukocytosis. Her H&H are stable. I do not suspect a surgical abdomen. I repeated an ultrasound of the right upper quadrant, which did not have any significant abnormality. The patient's lipase is slightly elevated. It is possible that she has a mild pancreatitis. Believe she is stable to be discharged home with close follow-up. The patient was instructed to follow-up with her primary care physician. In addition, she was given the name of a GI doctor for follow-up. She was instructed to call tomorrow morning for a follow-up appointment. The patient will be treated with a clear liquid diet for 24 hours in addition to narcotics and antiemetics. She is comfortable with this plan. She agrees to return to the emergency department with any new, worsening or concerning symptoms Medication Reconcilliation Current Medication List: was personally reviewed by me Blood Pressure Screening Patient's blood pressure: Normal blood pressure Impression Primary Impression: Pancreatitis Departure Information Dispostion Home / Self-Care Condition GOOD Prescriptions Ondasetron Odt (ZOFRAN ODT) 4 Mg Tab 4 MG SL Q6H for Nausea, #20 TAB Prov: Rema Rao PA-C 06/29/17 Oxycodone Ir (Roxicodone Ir) 5 Mg Tab 1-2 TAB PO Q4H Y for Pain, #15 TAB For Initial Treatment Prov: Rema Rao PA-C 06/29/17 Referrals Gisel Ramirez D.O. (PCP) Martin Tucker D.O. Patient Instructions My [facility] Additional Instructions You were evaluated in the emergency department for abdominal pain and vomiting. This is possibly due to a mild pancreatitis. Please follow a clear liquid diet for 24 hours. This includes Sprite, tracey negra, water, sports drinks, broth, etc... Please continue Protonix as prescribed Oxycodone Immediate Release (OxyIR) 5mg: Take 1-2 pills every four hours for pain. Avoid alcohol, operating machinery or dangerous equipment, working on ladders or roofs, DRIVING, or situations where being under the influence may be dangerous. It is recommended to use an vphi-xml-nqbyejo stool softener such as Colace, 100mg twice daily while taking this medication to avoid constipation. Zofran 1 tablet under the tongue every 6 hours as needed for nausea Please follow-up with your primary care physician within the next 2-3 days for recheck. Call tomorrow morning for a follow-up appointment. Please also follow up with the GI doctor. A number has been provided. Please call in the morning for a follow-up appointment. Return to the emergency department with any new, worsening or concerning symptoms
[2017-06-29] MEDS: ONDANSETRON INJ 2 MG/ML 2 ML VIAL IV PRN ×2 (19:20→21:07)
[2017-06-29] MEDS: MoRPHine SULFATE 4 MG/ML 1 ML CARP\\VIAL IV PRN ×2 (19:21→20:40)
[2017-06-29] MEDS ORDERED: AMOX875T PO (19:34)
[2017-06-29 19:42] LABS: URINE APPEARANCE CLEAR (CLEAR); URINE BILIRUBIN NEG (NEG); URINE COLOR YELLOW; URINE NITRITE NEG (NEG); URINE SPECIFIC GRAVITY 1.024 (1.000-1.030); UROBILINOGEN NEG (NEG)
[2017-06-29 19:42] LABS: BASO % 0.3 %; BASO ABS # 0.03 K/uL (0-0.2); COMPLETE YES; EOS % 4.1 %; HEMATOCRIT 41.5 % (37-47); IG% 0.2 %; LYMPH % 34.1 %; LYMPH ABS # 2.98 K/uL (1.2-3.4); MEAN CELL VOLUME 93.5 fL (80-100); MEAN CORPUSCULAR HEMOGLOBIN 31.1 pg (25-34); MEAN CORPUSCULAR HGB CONC 33.3 g/dl (32-36); MEAN PLATELET VOLUME 9.9 fL (7.4-10.4); NEUT % 52.3 %; PLATELET COUNT 222 K/uL (130-400); RED BLOOD COUNT 4.44 M/uL (4.2-5.4); WHITE BLOOD COUNT 8.73 K/uL (4.8-10.8)
[2017-06-29 19:46] LABS: MANUAL MICROSCOPIC REQUIRED? NO; REVIEW REQ? NO
[2017-06-29 19:51] LABS: BUN/CREATININE RATIO 18.9 (10-20); CALCIUM 8.9 mg/dl (8.5-10.1); CREATININE 0.79 mg/dl (0.60-1.20); POTASSIUM 3.7 mmol/L (3.5-5.1)
[2017-06-29 19:53] LABS: ALB/GLOB RATIO 0.9 (0.9-2)
--- NOTE | 2017-06-29 20:45 | DIAGNOSTIC IMAGING REPORT ---
GALLBLADDER-ABD LIMITED HISTORY: 27 years-old Female epigastric abd pain acute epigastric abdominal pain COMPARISON: CT 06/15/2017 TECHNIQUE: Multiple real-time sonographic images of the abdominal right upper quadrant were obtained assessing grayscale appearance and color flow FINDINGS: Pancreas is unremarkable. The liver is also within normal limits without focal mass or intrahepatic biliary ductal dilation. Gallbladder is unremarkable without cholelithiasis, wall thickening or pericholecystic fluid. Sonographic Partida sign reported as negative. The common bile duct is normal, 2 mm. Imaged right kidney is unremarkable measuring 12 cm in length. No hydronephrosis. IMPRESSION: Unremarkable right upper quadrant ultrasound. The above report was generated using voice recognition software. It may contain grammatical, syntax or spelling errors. Electronically signed by: Mason Covarrubias M.D. 06/29/2017 8:44 PM Dictated Date/Time: 06/29/2017 8:42 PM
[2017-06-29] MEDS ORDERED: OXYCODONE IR HOME PACK PO ONE (21:45)
[2017-06-29] MEDS ORDERED: OXYC1TAB3 PO (21:48)
[2017-06-29] MEDS ORDERED: ONDA4TAB10 SL (21:48)
[2017-06-29] MEDS ORDERED: ONDANSETRON HOME PACK 4MG OD TAB PO ONE (22:00)
[2017-06-29 22:15] VITALS: BP 112/67; PULSE 70; O2SAT 99
== END 2017-06-29 22:15 | disposition home or self-care (01) ==
LOC: C.EDB 17:37 → C.EDC 22:15
DX: K85.90 Acute pancreatitis without necrosis or infection, unspecified (principal); M79.7 Fibromyalgia; Z79.899 Other long term (current) drug therapy

== ENCOUNTER → 2017-07-13 | Outpatient (CLI) | payer OTHER ==
[~2017-07-13] MED LIST changes: +AMOX875T PO; +ONDA4TAB10 SL; +OXYC1TAB3 PO; -PANT40TA PO
--- NOTE | 2017-07-19 07:59 | MAMMOGRAPHY REPORT ---
ULTRASOUND OF BOTH BREASTS: 07/13/2017 CLINICAL HISTORY: 27-year-old woman presents with a palpable lump in the left upper outer quadrant wh ich she noticed on the summer. She reports the tissue surrounding the lump feels denser and different in texture than the remainder of the breast. No skin erythema or nipple discharge. No known family history of breast cancer. COMPARISON: No prior exams were available for comparison. FINDINGS: Targeted ultrasound was performed in the area of palpable lump pointed out by the patient. On palpation in the 1:00 left breast, 8 cm from the nipple, I feel a discrete 2 cm area of nodulari ty, that feels like normal dense glandular tissue. On ultrasound, there is sonographically normal ti ssue extending between fat lobules close to the dermis, without evidence of a discrete solid or cysti c mass. IMPRESSION: ACR BI-RADS CATEGORY 2: BENIGN There is no sonographic evidence of malignancy or other suspicious abnormality to explain the palpabl e lump in the left upper outer quadrant. Therefore, clinical follow-up and continued clinical monito ring is recommended as biopsy of a clinically suspicious mass should not be precluded by negative fernanda ging. These results and recommendations were discussed with the patient at the time of the exam. Bhavana Solano M.D. ay/:07/13/2017 14:09:20 Machine Welder: Dr. Bhavana Solano, [facility] letter sent: Normal 1/2 BI-RADS Code: ACR BI-RADS Category 2: Benign
== END | disposition home or self-care (01) ==
LOC: C.MAMM 13:24
PROVIDERS: ATTEND Physician Assistant
DX: N63.21 Unspecified lump in the left breast, upper outer quadrant (principal)

== ENCOUNTER 2017-09-09 21:45 | Emergency (ER) | payer OTHER ==
[~2017-09-09] VITALS: Ht 172.7 cm; Wt 68.8 kg
[2017-09-09 22:07] VITALS: TEMP 36.8; Ht 172.7 cm; Wt 68.8 kg
[2017-09-09] MEDS ORDERED: ALUMINUM/MAGNESIUM SUSP 30 ML UDC PO STA (22:25)
[2017-09-09] MEDS ORDERED: LIDOCAINE HCL 2% VISC SOLN 20 ML UDC PO STA (22:25)
[2017-09-09 23:06] LABS: BASO % 0.5 %; BASO ABS # 0.03 K/uL (0-0.2); EOS % 8.3 %; EOS ABS # 0.49 K/uL (0-0.5); HEMATOCRIT 37.2 % (37-47); HEMOGLOBIN 13.1 g/dL (12.0-16.0); IG# 0.01 K/uL (0.00-0.02); LYMPH % 38.3 %; LYMPH ABS # 2.25 K/uL (1.2-3.4); MEAN CELL VOLUME 92.8 fL (80-100); MEAN CORPUSCULAR HEMOGLOBIN 32.7 pg (25-34); MEAN CORPUSCULAR HGB CONC 35.2 g/dl (32-36); MEAN PLATELET VOLUME 9.6 fL (7.4-10.4); MONO % 10.7 %; MONO ABS # 0.63 K/uL (0.11-0.59); NEUT ABS # 2.47 K/uL (1.4-6.5); PLATELET COUNT 175 K/uL (130-400); RED CELL DISTRIBUTION WIDTH CV 12.5 % (11.5-14.5); RED CELL DISTRIBUTION WIDTH SD 42.7 fL (36.4-46.3); WHITE BLOOD COUNT 5.88 K/uL (4.8-10.8)
[2017-09-09 23:31] LABS: ALBUMIN 3.3 gm/dl (3.4-5.0); ALT/SGPT 19 U/L (12-78); AST/SGOT 11 U/L (15-37); BLOOD UREA NITROGEN 12 mg/dl (7-18); CALCIUM 8.8 mg/dl (8.5-10.1); CARBON DIOXIDE 25 mmol/L (21-32); CREATININE 0.68 mg/dl (0.60-1.20); GLUCOSE 87 mg/dl (70-99); LIPASE 267 U/L (73-393); POTASSIUM 3.5 mmol/L (3.5-5.1); SODIUM 138 mmol/L (136-145)
[2017-09-09 23:34] LABS: ALKALINE PHOSPHATASE 50 U/L (45-117); TOTAL PROTEIN 6.9 gm/dl (6.4-8.2)
[2017-09-09] MEDS ORDERED: MoRPHine SULFATE 4 MG/ML 1 ML CARP\\VIAL IV STA (23:55)
[2017-09-09] MEDS ORDERED: ONDANSETRON INJ 2 MG/ML 2 ML VIAL IV STA (23:55)
[2017-09-10] MEDS ORDERED: PANT40TA PO (00:12)
[2017-09-10] MEDS ORDERED: CHOL1TAB46 PO (00:12)
[2017-09-10 00:42] VITALS: BP 126/70; PULSE 77; O2SAT 98
[2017-09-10] MEDS ORDERED: ONDANSETRON HOME PACK 4MG OD TAB PO ONE (00:45)
[2017-09-10] MEDS ORDERED: OXYCODONE IR HOME PACK PO ONE (00:45)
--- NOTE | 2017-09-10 05:35 | DIAGNOSTIC IMAGING REPORT ---
GALLBLADDER-ABD LIMITED CLINICAL HISTORY: 27 years-old Female presenting with ruq pain. TECHNIQUE: Real-time grayscale and limited color Doppler ultrasound imaging of the abdomen limited to the right upper quadrant was performed. COMPARISON: 06/29/2017. FINDINGS: Pancreas: Visualized portions of the pancreatic head and body normal. Liver: Mildly hyperechogenic parenchyma, although the right hemidiaphragm remains visible, likely indicating mild steatosis. The liver measures 16.3 cm in maximal sagittal dimension. No sonographic evidence of hepatic mass. Main portal vein patent with normal directional flow. Biliary: No intrahepatic biliary ductal dilatation. Common bile duct measures up to 2 mm in diameter. Gallbladder: Decompressed. Right kidney: Normal in appearance. No hydronephrosis. Ascites: None. IMPRESSION: 1. No cholelithiasis or biliary ductal dilatation. 2. Hepatic steatosis. Correlate with liver function tests to exclude steatohepatitis as a cause for abdominal pain. Electronically signed by: Jayy Lee M.D. 09/10/2017 5:34 AM Dictated Date/Time: 09/10/2017 5:32 AM
--- NOTE | 2017-09-10 07:17 | EMERGENCY ROOM VISIT NOTE ---
History First contact with patient: 22:18 Chief Complaint: ABDOMINAL PAIN Stated Complaint: UPPER RIGHT AB PAIN/NAUSEA/BACK PAIN Nursing Triage Summary: RUQ abdominal pain radiating to chest and back, starting two days ago, nausea without vomiting, pt states recent endoscopy with dx of "superficial abrasions in stomach." Pt states pain normally is not this bad and does not radiate. History of Present Illness The patient is a 27 year old female who presents to the Emergency Room with complaints of right upper quadrant abdominal pain for the past few days described as cramping, ranging in severity 7 out of 10. Nothing makes it better or worse. It does not radiate. Patient denies nausea, vomiting, chest pain, dyspnea, back pain, urinary symptoms. No HIDA scan in the past. Prior ultrasound has showed gallbladder sludge. She had an EGD 2 weeks ago showed mild gastritis. She is on Protonix. Review of Systems An 10 system review of systems was completed with positives and pertinent negatives listed in the HPI. Past Medical/Surgical History Surgical Problems: (1) No significant past surgical history Family History Patient reports no known family medical history. Social History Smoking Status: Never Smoker Alcohol Use: occasionally Marital Status: single Housing Status: lives with family Occupation Status: employed Current/Historical Medications Scheduled Cholecalciferol (Vitamin D3), 5,000 UNIT PO 2XWK Ethinyl Estrad/Desogestrel (Kariva), 1 TAB PO DAILY Pantoprazole (Protonix), 40 MG PO DAILY Scheduled PRN Fluticasone Propionate (Nasal) (Flonase Allergy Relief), 2 SPRAYS ANGELA BID PRN for Nasal Congestion Physical Exam Vital Signs Date Time Temp Pulse Resp B/P (MAP) Pulse Ox O2 Delivery O2 Flow Rate FiO2 09/10/17 00:42 77 16 126/70 98 09/09/17 23:44 84 16 127/80 98 Room Air 09/09/17 22:39 Room Air 09/09/17 22:07 36.8 87 18 113/74 98 Room Air Physical Exam VITALS: Vitals are noted on the nurse's note and reviewed by myself. Vital signs stable. GENERAL: Pleasant female, in no acute distress, nondiaphoretic, well-developed well-nourished. SKIN: Capillary reflex less than 2 seconds. HEENT: Normocephalic. PERRLA. EOMI. Nares patent. Mucous membranes moist. Neck is supple without nuchal rigidity. HEART: Regular rate and rhythm without murmurs gallops or rubs. LUNGS: Clear to auscultation bilaterally without wheezes, rales or rhonchi. No retractions or accessory muscle use. ABDOMEN: Positive bowel sounds x 4. Normal tympanic percussion. Soft, tender to palpation right upper quadrant, no CVA tenderness, without masses or organomegaly. Partida sign negative. No guarding or rebound tenderness. MUSCULOSKELETAL: No gross musculoskeletal defects. No pedal edema. No calf tenderness. NEURO: Patient was alert and oriented to person place and time. Normal sensation to light and sharp touch. No focal neurological deficits. Medical Decision & Procedures Laboratory Results 09/09/17 22:51 Red Blood Count 4.01, Mean Corpuscular Volume 92.8, Mean Corpuscular Hemoglobin 32.7, Mean Corpuscular Hemoglobin Concent 35.2, Mean Platelet Volume 9.6, Neutrophils (%) (Auto) 42.0, Lymphocytes (%) (Auto) 38.3, Monocytes (%) (Auto) 10.7, Eosinophils (%) (Auto) 8.3, Basophils (%) (Auto) 0.5, Neutrophils # (Auto ) 2.47, Lymphocytes # (Auto) 2.25, Monocytes # (Auto) 0.63, Eosinophils # (Auto ) 0.49, Basophils # (Auto) 0.03 09/09/17 22:51 Test 09/09/17 22:51 09/09/17 22:56 White Blood Count 5.88 K/uL (4.8-10.8) Red Blood Count 4.01 M/uL (4.2-5.4) Hemoglobin 13.1 g/dL (12.0-16.0) Hematocrit 37.2 % (37-47) Mean Corpuscular Volume 92.8 fL (80-100) Mean Corpuscular Hemoglobin 32.7 pg (25-34) Mean Corpuscular Hemoglobin Concent 35.2 g/dl (32-36) Platelet Count 175 K/uL (130-400) Mean Platelet Volume 9.6 fL (7.4-10.4) Neutrophils (%) (Auto) 42.0 % Lymphocytes (%) (Auto) 38.3 % Monocytes (%) (Auto) 10.7 % Eosinophils (%) (Auto) 8.3 % Basophils (%) (Auto) 0.5 % Neutrophils # (Auto) 2.47 K/uL (1.4-6.5) Lymphocytes # (Auto) 2.25 K/uL (1.2-3.4) Monocytes # (Auto) 0.63 K/uL (0.11-0.59) Eosinophils # (Auto) 0.49 K/uL (0-0.5) Basophils # (Auto) 0.03 K/uL (0-0.2) RDW Standard Deviation 42.7 fL (36.4-46.3) RDW Coefficient of Variation 12.5 % (11.5-14.5) Immature Granulocyte % (Auto) 0.2 % Immature Granulocyte # (Auto) 0.01 K/uL (0.00-0.02) Anion Gap 7.0 mmol/L (3-11) Est Creatinine Clear Calc Drug Dose 126.4 ml/min Estimated GFR () 139.9 Estimated GFR (Non- 120.7 BUN/Creatinine Ratio 17.7 (10-20) Calcium Level 8.8 mg/dl (8.5-10.1) Total Bilirubin 0.2 mg/dl (0.2-1) Direct Bilirubin < 0.1 mg/dl (0-0.2) Aspartate Amino Transf (AST/SGOT) 11 U/L (15-37) Alanine Aminotransferase (ALT/SGPT) 19 U/L (12-78) Alkaline Phosphatase 50 U/L (45-117) Total Protein 6.9 gm/dl (6.4-8.2) Albumin 3.3 gm/dl (3.4-5.0) Lipase 267 U/L (73-393) Human Chorionic Gonadotropin, Qual NEG (NEG) Urine Color YELLOW Urine Appearance CLEAR (CLEAR) Urine pH 6.0 (4.5-7.5) Urine Specific [place] 1.028 (1.000-1.030) Urine Protein NEG (NEG) Urine Glucose (UA) NEG (NEG) Urine Ketones NEG (NEG) Urine Occult Blood NEG (NEG) Urine Nitrite NEG (NEG) Urine Bilirubin NEG (NEG) Urine Urobilinogen NEG (NEG) Urine Leukocyte Esterase NEG (NEG) Medications Administered Medications (Trade) Dose Ordered Sig/Liza Route Start Time Stop Time Status Last Admin Dose Admin Lidocaine HCl (Viscous Lidocaine 2% Soln) 10 ml NOW STAT PO 09/09/17 22:25 09/09/17 22:26 DC 09/09/17 22:56 10 ML Al Hydroxide/Mg Hydroxide (Maalox Susp) 30 ml NOW STAT PO 09/09/17 22:25 09/09/17 22:26 DC 09/09/17 22:56 30 ML Ondansetron HCl (Zofran Inj) 4 mg NOW STAT IV 09/09/17 23:55 09/09/17 23:56 DC 09/10/17 00:13 4 MG Morphine Sulfate (MoRPHine SULFATE INJ) 4 mg NOW STAT IV 09/09/17 23:55 09/09/17 23:56 DC 09/10/17 00:14 4 MG ED Course Prior records/ancillary studies reviewed. Triage Nursing notes reviewed. Additional history obtained from family. The patient's history was concerning for abdominal pain. Differential diagnosis: Etiologies such as appendicitis, diverticulitis, PUD, biliary pathology, UTI, pancreatitis, obstruction, mesenteric ischemia, aortic pathology, infections, inflammatory bowel disease, renal colic, as well as others were entertained. Physical examination findings: As above. ER treatment provided: GI cocktail, morphine, Zofran On reassessment the patient felt better. Diagnostics interpreted by me: The labs revealed No leukocytosis, negative hCG Imaging studies: ultrasound negative for acute cholecystitis per radiology Exam and history seem consistent with right upper quadrant abdominal pain with unclear etiology. This could be biliary colic. She is advised to low-fat diet and to follow-up with family care for outpatient HIDA scan or here in the ER sooner for severe pain, fevers, vomiting, worsening signs or symptoms or as needed. Patient did not have an acute abdomen exam. She is well-appearing.By the evaluation outlined above emergent etiologies such as appendicitis, diverticulitis, PUD,UTI, pancreatitis, obstruction, mesenteric ischemia, aortic pathology, infections, inflammatory bowel disease, renal colic, as well as others were deemed relatively unlikely. The pt informed about the findings as listed above. All questions were answered and pleased with the treatment. Return instructions were outlined and the patient was discharged in stable condition. Case reviewed with my attending Referral: The patient was referred back to their primary care physician for follow-up in 2 to 3 days for a recheck of the current condition. Medical Decision As above Medication Reconcilliation Current Medication List: was personally reviewed by me Blood Pressure Screening Patient's blood pressure: Normal blood pressure Impression Primary Impression: Right upper quadrant abdominal pain Departure Information Dispostion Home / Self-Care Condition GOOD Referrals Gisel Ramirez D.O. (PCP) Forms HOME CARE DOCUMENTATION FORM, IMPORTANT VISIT INFORMATION Patient Instructions Scan HIDA, My [facility] [employer] Additional Instructions DO NOT drive, drink alcohol, operate machinery, or perform dangerous activities today. You were given medications in the ER that can affect your ability to safely function or operate a vehicle. Recommend outpatient HIDA scan for further workup on your gallbladder if symptoms persist. Recommend low-fat healthy diet. Recommend that you see a hinging machine operator. Ibuprofen(Motrin, Advil) may be used for fever or pain. Use 600mg every six hours as needed. Take with food. Avoid using more than 2400mg in a 24 hour period. Do not use 2400mg per day for more than three consecutive days without physician direction. Prolonged inappropriate use can lead to stomach upset or ulcers. (AND/OR) Acetaminophen(Tylenol) may be used for fever or pain. Use 1000mg every six hours as needed. Avoid using more than 3000mg in a 24 hour period. Zofran 4mg: Take one every six hours as needed for nausea. Avoid alcohol, operating machinery or dangerous equipment, working on ladders or roofs, DRIVING , or situations where being under the influence may be dangerous. Rest and drink plenty of fluids as tolerated. Slow sips of water or sports drinks are recommended instead of large amounts all at once. Continue current medications. Once your stomach is settled start with a clear liquid diet (jello, soup broth, etc.) and then advance as tolerated. You should avoid full, heavy meals for about 24 hrs from the time your symptoms resolved. Return to the ER immediately for worsening or persistent abdominal pain, vomiting, fevers, chest pains, difficulty breathing, black or bloody stools, worsening of your condition, or as needed. Follow up with your primary physician in 2-3 days for a recheck of your current condition.
== END 2017-09-10 00:43 | disposition home or self-care (01) ==
LOC: C.EDB 21:47 → C.EDC 09-10 00:43
DX: R10.11 Right upper quadrant pain (principal); Z79.899 Other long term (current) drug therapy

== ENCOUNTER 2017-09-29 10:20 | Emergency (ER) | payer OTHER ==
[~2017-09-29] VITALS: Ht 172.7 cm; Wt 66.5 kg
[~2017-09-29 10:20] MED LIST changes: -AMOX875T PO; +CHOL1TAB46 PO; -ONDA4TAB10 SL; -OXYC1TAB3 PO; +PANT40TA PO
[2017-09-29 10:28] VITALS: TEMP 36.7; Ht 172.7 cm; Wt 66.5 kg
[2017-09-29] MEDS ORDERED: GABA-112 PO (11:11)
[2017-09-29] MEDS ORDERED: KETOROLAC TROMETHAMINE 30 MG/ML VIAL IV STA (11:48)
--- NOTE | 2017-09-29 12:03 | EMERGENCY ROOM VISIT NOTE ---
History First contact with patient: 11:10 Chief Complaint: NECK PAIN Stated Complaint: SEVERE NECK PAIN,UNABLE TO MOVE NECK History of Present Illness The patient is a 27 year old female who presents to the Emergency Room with complaints of neck pain. The patient states she awoke this morning with increased pain with movement in her neck. She states she has been experiencing the pain intermittently for the past few days. Last week, she states she was bowling, and the next day awoke with pain in her neck. She states that improved after few days, however seem to return a few days after the improvement. The patient states she is also been ill since early this week complaining of a sore throat, nasal congestion, chills, and headache. She has been taking Sudafed for those symptoms. She describes difficulty with forward flexion and right lateral rotation of the neck. She states she is able to perform lateral rotation to the left. The patient states the pain may be radiating to her upper back, but states it is difficult to tell, she has a history of fibromyalgia. The patient is currently on gabapentin 100 mg per day for her fibromyalgia. She states she has not taken anything specifically for the neck pain, as she was concerned while taking this medication. She denies any obvious fever, but states she has been experiencing chills. She does spend a lot of time outdoors, and states it is possible that she has gotten bitten by a tick. Review of Systems A complete 10 point review of systems was reviewed with the patient with pertinent positives and negatives as per history of present illness. All else were negative. Past Medical/Surgical History Surgical Problems: (1) No significant past surgical history Family History Patient reports no known family medical history. Social History Smoking Status: Never Smoker Alcohol Use: occasionally Marital Status: single Housing Status: lives with family Occupation Status: employed Current/Historical Medications Scheduled Cholecalciferol (Vitamin D3), 5,000 UNIT PO 2XWK Ethinyl Estrad/Desogestrel (Kariva), 1 TAB PO DAILY Gabapentin (Neurontin), 100 MG PO DAILY Methylprednisolone (Medrol Dosepak), 0 PO DAILY Pantoprazole (Protonix), 40 MG PO DAILY Scheduled PRN Cyclobenzaprine Hcl (Flexeril), 5-10 MG PO TID PRN for Muscle Spasms Fluticasone Propionate (Nasal) (Flonase Allergy Relief), 2 SPRAYS ANGELA BID PRN for Nasal Congestion Physical Exam Vital Signs Date Time Temp Pulse Resp B/P (MAP) Pulse Ox O2 Delivery O2 Flow Rate FiO2 09/29/17 14:20 73 16 109/56 95 09/29/17 12:15 63 16 100/64 99 Room Air 09/29/17 10:28 36.7 128 18 118/61 98 Room Air Physical Exam VITALS: Vitals are noted on the nurse's note and reviewed by myself. Vital signs stable. GENERAL: This is a 27-year-old white female, in no acute distress, nondiaphoretic, well-developed well-nourished. SKIN: The skin was without rashes, erythema, edema, or bruising. There is no tenting of the skin. Capillary reflex less than 2 seconds. HEAD: Normocephalic atraumatic. EARS: External auditory canals clear, tympanic membranes pearly duncan without erythema or effusion bilaterally. EYES: Pupils equal round and reactive to light and accommodation. Conjunctivae without injection, sclerae without icterus. Extraocular movements intact. NOSE: Patent, turbinates with erythema, inflammation, and rhinorrhea. No sinus tenderness. MOUTH: Mucous membranes moist. Tonsils are not enlarged. Pharynx without erythema or exudate. Uvula midline. Airway patent. Tongue does not deviate. NECK: Supple without nuchal rigidity, but significant tenderness and some stiffness with all attempts at movement of the neck. + mild lymphadenopathy in the anterior, posterior cervical chains. No thyromegaly. Cervical spine is tender. No JVD. HEART: Regular rate and rhythm without murmurs gallops or rubs. LUNGS: Clear to auscultation bilaterally without wheezes, rales or rhonchi. No dullness to percussion. No retractions or accessory muscle use. ABDOMEN: Positive bowel sounds x 4. Normal tympanic percussion. Soft, nontender, without masses or organomegaly. Partida sign negative. No guarding or rebound tenderness. MUSCULOSKELETAL: No muscle atrophy, erythema, or edema noted. Full range of motion without joint tenderness in all extremities. No tenderness to palpation. Normal gait. Strength 5/5 throughout. NEURO: Patient was alert and oriented to person place and time. Normal sensation to light and sharp touch. Deep tendon reflexes 2+ throughout. No focal neurological deficits. Medical Decision & Procedures ER Provider Diagnostic Interpretation: CERVICAL SPINE 2 OR 3 VIEWS HISTORY: Pain neck pain/stiffness COMPARISON: None. FINDINGS: The cervical spine is visualized from C1 through the superior endplate of T1. There is no fracture. No subluxation. Disc spaces are preserved. Prevertebral soft tissues and the atlantodens interval are intact. IMPRESSION: No fracture or subluxation within the cervical spine. The above report was generated using voice recognition software. It may contain grammatical, syntax or spelling errors. Electronically signed by: Richard Flynn M.D. 09/29/2017 12:33 PM Dictated Date/Time: 09/29/2017 12:33 PM Laboratory Results 09/29/17 11:56 Red Blood Count 4.51, Mean Corpuscular Volume 92.9, Mean Corpuscular Hemoglobin 32.8, Mean Corpuscular Hemoglobin Concent 35.3, Mean Platelet Volume 9.5, Neutrophils (%) (Auto) 50.8, Lymphocytes (%) (Auto) 31.4, Monocytes (%) (Auto) 10.7, Eosinophils (%) (Auto) 6.0, Basophils (%) (Auto) 0.8, Neutrophils # (Auto ) 3.14, Lymphocytes # (Auto) 1.94, Monocytes # (Auto) 0.66, Eosinophils # (Auto ) 0.37, Basophils # (Auto) 0.05 09/29/17 11:56 Test 09/29/17 11:56 White Blood Count 6.18 K/uL (4.8-10.8) Red Blood Count 4.51 M/uL (4.2-5.4) Hemoglobin 14.8 g/dL (12.0-16.0) Hematocrit 41.9 % (37-47) Mean Corpuscular Volume 92.9 fL (80-100) Mean Corpuscular Hemoglobin 32.8 pg (25-34) Mean Corpuscular Hemoglobin Concent 35.3 g/dl (32-36) Platelet Count 172 K/uL (130-400) Mean Platelet Volume 9.5 fL (7.4-10.4) Neutrophils (%) (Auto) 50.8 % Lymphocytes (%) (Auto) 31.4 % Monocytes (%) (Auto) 10.7 % Eosinophils (%) (Auto) 6.0 % Basophils (%) (Auto) 0.8 % Neutrophils # (Auto) 3.14 K/uL (1.4-6.5) Lymphocytes # (Auto) 1.94 K/uL (1.2-3.4) Monocytes # (Auto) 0.66 K/uL (0.11-0.59) Eosinophils # (Auto) 0.37 K/uL (0-0.5) Basophils # (Auto) 0.05 K/uL (0-0.2) RDW Standard Deviation 41.3 fL (36.4-46.3) RDW Coefficient of Variation 12.2 % (11.5-14.5) Immature Granulocyte % (Auto) 0.3 % Immature Granulocyte # (Auto) 0.02 K/uL (0.00-0.02) Erythrocyte Sedimentation Rate 8 mm/hr (0-21) Anion Gap 5.0 mmol/L (3-11) Est Creatinine Clear Calc Drug Dose 106.1 ml/min Estimated GFR () 116.2 Estimated GFR (Non- 100.2 BUN/Creatinine Ratio 13.7 (10-20) Calcium Level 9.1 mg/dl (8.5-10.1) Total Bilirubin 0.4 mg/dl (0.2-1) Aspartate Amino Transf (AST/SGOT) 20 U/L (15-37) Alanine Aminotransferase (ALT/SGPT) 28 U/L (12-78) Alkaline Phosphatase 59 U/L (45-117) Total Protein 8.2 gm/dl (6.4-8.2) Albumin 4.1 gm/dl (3.4-5.0) Globulin 4.1 gm/dl (2.5-4.0) Albumin/Globulin Ratio 1.0 (0.9-2) Lyme Disease IgG Antibody NEG (NEG) Lyme Disease IgM Antibody NEG (NEG) Medications Administered Medications (Trade) Dose Ordered Sig/Liza Route Start Time Stop Time Status Last Admin Dose Admin Ketorolac Tromethamine (Toradol Inj) 30 mg NOW STAT IV 09/29/17 11:48 09/29/17 11:49 DC 09/29/17 12:04 30 MG ED Course The patient was seen and evaluated as above. IV access obtained, labs drawn. The patient was given 30 mg Toradol IV. X-ray of the cervical spine was ordered and reviewed by myself and radiologist as above. Labs were reviewed. I discussed all findings with the patient at bedside. I did offer her puncture in order to rule out acute meningitis, but after discussing the benefits versus risks in the patient's workup which was already performed, the patient declines. I discussed the case with Dr. Coat. He was in agreement with the assessment and plan. Discharge instructions reviewed, the patient was discharged home in good condition. Medical Decision This is a 27-year-old female patient presents to the emergency department complaining of neck pain and stiffness. She states she has been experiencing the pain intermittently over the past 1 week. She states she awoke this morning , and the pain and stiffness have significantly increased. The patient states she is having significantly increased pain with movement. She was given IV Toradol, did note mild to moderate improvement in her symptoms. The patient's lab workup here did not show any leukocytosis, elevated sed rate, abnormality of the renal or hepatic function, and negative Lyme disease. I suspect a muscular etiology of illness, as the patient was bowling last week prior to symptom onset. I did discuss the benefits versus risks associated with lumbar puncture to rule out meningitis, and discussed with her the risks associated with untreated meningitis. The patient is agreeable to treating the discomfort symptomatically and follow-up outpatient with her primary care provider. If you feel that this is a reasonable plan, and advised the patient on specific, strict return precautions. Differential diagnosis includes meningitis, abscess, malignancy, musculoskeletal , strep pharyngitis, upper respiratory infection, acute sinusitis, lymphadenitis , Lyme disease, and others. Medication Reconcilliation Current Medication List: was personally reviewed by me Blood Pressure Screening Patient's blood pressure: Normal blood pressure Impression Primary Impression: Cervicalgia Departure Information Dispostion Home / Self-Care Condition GOOD Prescriptions Methylprednisolone (MEDROL DOSEPAK) 4 Mg Facundo 0 PO DAILY, #1 PKT Prov: Cathy Nolasco PA-C 09/29/17 Cyclobenzaprine Hcl (FLEXERIL) 5 Mg Tab 5-10 MG PO TID Y for Muscle Spasms, #30 TAB PRN Prov: Cathy Nolasco PA-C 09/29/17 Referrals Gisel RamirezD.ODeangelo (PCP) Patient Instructions ED Neck Back Pain [facility], [facility] Additional Instructions You have been treated in the Emergency Department for Neck Pain. You have been prescribed Flexeril (cyclobenzaprine) 1-2 tabs orally, three times per day. Do NOT exceed 30 mg (6 tabs) per day. Take your first dose at bedtime as it can make you drowsy. Always take all medications as prescribed. You have been prescribed a Medrol Dosepak. This is a steroid which will help decrease your inflammation, redness, and itch. Take the medicine as prescribed. Take the ENTIRE 6 day course of the steroids. Do not take any NSAIDs while on this medication. For pain control, you can use the following [id number] medicines (if >12 yo): Ibuprofen(Motrin, Advil) may be used for fever or pain. Use 600mg every six hours as needed. Take with food. Avoid using more than 2400mg in a 24 hour period. Do not use 2400mg per day for more than three consecutive days without physician direction. Prolonged inappropriate use can lead to stomach upset or ulcers. DO NOT TAKE THIS MEDICATION WITH STEROIDS. (AND/OR) Acetaminophen(Tylenol) may be used for fever or pain. Use 1000mg every six hours as needed. Avoid using more than 3000mg in a 24 hour period. If this is an acute injury, ice can be applied to the area of pain for the first 3 days to help decrease pain and inflammation. After the first 3 days, a heating pad can be used over the area for continued soothing relief. You should schedule a follow-up appointment in 2-3 days with your Primary Care Provider for further evaluation and treatment of your neck pain. Return to the Emergency Department if your current symptoms worsen despite treatment course outlined above, or if you develop any of the following symptoms : intractable pain despite aforementioned treatment course, fever, worsening facial/neck swelling, facial droop, slurred speech, unilateral weakness, or worsening of her current symptoms.
[2017-09-29 12:17] LABS: BASO % 0.8 %; BASO ABS # 0.05 K/uL (0-0.2); EOS ABS # 0.37 K/uL (0-0.5); HEMATOCRIT 41.9 % (37-47); HEMOGLOBIN 14.8 g/dL (12.0-16.0); IG# 0.02 K/uL (0.00-0.02); LYMPH % 31.4 %; LYMPH ABS # 1.94 K/uL (1.2-3.4); MEAN CELL VOLUME 92.9 fL (80-100); MEAN CORPUSCULAR HEMOGLOBIN 32.8 pg (25-34); MEAN CORPUSCULAR HGB CONC 35.3 g/dl (32-36); MEAN PLATELET VOLUME 9.5 fL (7.4-10.4); MONO % 10.7 %; MONO ABS # 0.66 K/uL (0.11-0.59); NEUT % 50.8 %; NEUT ABS # 3.14 K/uL (1.4-6.5); PLATELET COUNT 172 K/uL (130-400); RED CELL DISTRIBUTION WIDTH CV 12.2 % (11.5-14.5); RED CELL DISTRIBUTION WIDTH SD 41.3 fL (36.4-46.3); WHITE BLOOD COUNT 6.18 K/uL (4.8-10.8)
--- NOTE | 2017-09-29 12:35 | DIAGNOSTIC IMAGING REPORT ---
CERVICAL SPINE 2 OR 3 VIEWS HISTORY: Pain neck pain/stiffness COMPARISON: None. FINDINGS: The cervical spine is visualized from C1 through the superior endplate of T1. There is no fracture. No subluxation. Disc spaces are preserved. Prevertebral soft tissues and the atlantodens interval are intact. IMPRESSION: No fracture or subluxation within the cervical spine. The above report was generated using voice recognition software. It may contain grammatical, syntax or spelling errors. Electronically signed by: Richard Flynn M.D. 09/29/2017 12:33 PM Dictated Date/Time: 09/29/2017 12:33 PM
[2017-09-29 12:36] LABS: ALBUMIN 4.1 gm/dl (3.4-5.0); CALCIUM 9.1 mg/dl (8.5-10.1); CREATININE 0.81 mg/dl (0.60-1.20); POTASSIUM 3.7 mmol/L (3.5-5.1)
[2017-09-29 12:38] LABS: TOTAL PROTEIN 8.2 gm/dl (6.4-8.2)
[2017-09-29] MEDS ORDERED: CYCL5TAB PO (14:06)
[2017-09-29] MEDS ORDERED: METH4PAK PO (14:06)
[2017-09-29 14:20] VITALS: BP 109/56; PULSE 73; O2SAT 95
== END 2017-09-29 14:20 | disposition home or self-care (01) ==
LOC: C.EDB 10:21 → C.EDD 14:20
DX: M54.2 Cervicalgia (principal)

== ENCOUNTER → 2017-10-06 | Outpatient (CLI) | payer OTHER ==
[~2017-10-06] MED LIST changes: +CYCL5TAB PO; +GABA-112 PO; +METH4PAK PO; +MoRPHine SULFATE 2 MG/ML CARP ONE; +SINCALIDE IV ONE; +SODIUM CHLORIDE 0.9% IV ONE
--- NOTE | 2017-10-06 15:36 | DIAGNOSTIC IMAGING REPORT ---
NUCLEAR MEDICINE HEPATOBILIARY SCAN CLINICAL HISTORY: NAUSEA, EPIGASTIC PAIN COMPARISON STUDY: Gallbladder ultrasound dated to September 09, 2017 FINDINGS: The patient was injected with 5.6 mCi of technetium 99m Choletec. Anterior imaging was performed. There is normal passage of activity into the small bowel. Cine images demonstrate activity in the region of the gallbladder fossa however this activity appears to continuously move favoring this representing activity within the descending duodenum. A gallbladder was not visualized with certainty. At 1 hour, the patient was injected with 2 mg of intravenous morphine. Again the gallbladder was not visualized with certainty on delayed imaging. In the absence of acute abdomen, the significance of the nonvisualization the gallbladder is unclear. IMPRESSION: 1. The gallbladder was not visualized with certainty. 2. A gallbladder ejection fraction could not be obtained. 3. In the absence of an acute abdomen, the significance of the nonvisualized gallbladder is unclear. Repeat gallbladder ultrasonography might be considered. Electronically signed by: Kevin Keys M.D. 10/06/2017 3:35 PM Dictated Date/Time: 10/06/2017 3:22 PM
== END | disposition home or self-care (01) ==
LOC: C.NUCL 12:35
PROVIDERS: ATTEND Internal Medicine Gastroenterology
DX: R11.0 Nausea (principal)

== ENCOUNTER 2017-10-15 01:16 | Emergency (ER) | payer OTHER ==
[~2017-10-15] VITALS: Ht 172.7 cm; Wt 67.4 kg
[~2017-10-15 01:16] MED LIST changes: -CYCL5TAB PO; -METH4PAK PO; -MoRPHine SULFATE 2 MG/ML CARP ONE; -SINCALIDE IV ONE; -SODIUM CHLORIDE 0.9% IV ONE
[2017-10-15 01:20] VITALS: TEMP 36.5; Ht 172.7 cm; Wt 67.4 kg
[2017-10-15] MEDS ORDERED: ONDANSETRON INJ 2 MG/ML 2 ML VIAL IV STA (01:59)
[2017-10-15] MEDS ORDERED: SODIUM CHLORIDE 0.9% 1000ML 1,000 ML IV ONE (02:00)
[2017-10-15] MEDS ORDERED: MoRPHine SULFATE 4 MG/ML 1 ML CARP\\VIAL IV ONE (02:00)
[2017-10-15] MEDS ORDERED: ONDA4TAB46 PO (02:07)
[2017-10-15 02:10] LABS: BASO % 0.3 %; BASO ABS # 0.02 K/uL (0-0.2); EOS % 8.7 %; EOS ABS # 0.53 K/uL (0-0.5); HEMATOCRIT 37.3 % (37-47); HEMOGLOBIN 13.2 g/dL (12.0-16.0); IG# 0.01 K/uL (0.00-0.02); LYMPH % 40.8 %; MEAN CORPUSCULAR HEMOGLOBIN 31.5 pg (25-34); MEAN CORPUSCULAR HGB CONC 35.4 g/dl (32-36); MEAN PLATELET VOLUME 9.2 fL (7.4-10.4); MONO % 10.8 %; MONO ABS # 0.66 K/uL (0.11-0.59); NEUT % 39.2 %; PLATELET COUNT 215 K/uL (130-400); RED CELL DISTRIBUTION WIDTH CV 11.8 % (11.5-14.5); RED CELL DISTRIBUTION WIDTH SD 38.4 fL (36.4-46.3); WHITE BLOOD COUNT 6.12 K/uL (4.8-10.8)
[2017-10-15] MEDS ORDERED: CHOL2000 PO (02:10)
[2017-10-15] MEDS ORDERED: KETOROLAC TROMETHAMINE 30 MG/ML VIAL IV STA (03:26)
[2017-10-15 03:30] LABS: ALBUMIN 3.2 gm/dl (3.4-5.0); CALCIUM 8.4 mg/dl (8.5-10.1); CREATININE 0.73 mg/dl (0.60-1.20); POTASSIUM 3.3 mmol/L (3.5-5.1)
[2017-10-15 03:31] LABS: TOTAL PROTEIN 7.3 gm/dl (6.4-8.2)
[2017-10-15 04:25] VITALS: BP 111/71; PULSE 65; O2SAT 97
--- NOTE | 2017-10-15 04:36 | EMERGENCY ROOM VISIT NOTE ---
History First contact with patient: 01:42 Chief Complaint: ABDOMINAL PAIN Stated Complaint: UPR RT ABD PAIN,NAUSEA,VOMITIN,DIZZINESS Nursing Triage Summary: Pt reports she has been having gallbladder issues for 6 months. She had a hida scan last week which was negative. Pt reports 2 hours ago the pain became worse. +nausea and vomiting. History of Present Illness The patient is a 27 year old female who presents to the Emergency Room with complaints of right upper quadrant abdominal pain worsening over the past 2 hours. The patient has had biliary colic symptoms off and on for the past 6 months. She had a HIDA scan performed last week, which was not able to visualize the gallbladder. The patient does have an upcoming appointment for initial evaluation by general surgery in 5 days. Patient states that she had worsening pain tonight while at home that did cause 2 episodes of vomiting. She continues to be nauseated. She has not had recent fever or chills. No chest pain, chest tightness, or shortness of breath. No lower abdominal pain. Her pain is similar to her previous episodes. She rates the discomfort a 7/10. Review of Systems More than 10 systems were reviewed and otherwise negative with the exception of history of present illness. Past Medical/Surgical History Surgical Problems: (1) No significant past surgical history Family History Patient reports no known family medical history. Social History Smoking Status: Never Smoker Alcohol Use: occasionally Marital Status: single Housing Status: lives with family Occupation Status: employed Current/Historical Medications Scheduled Cholecalciferol (Vitamin D3), 2,000 UNITS PO DAILY Ethinyl Estrad/Desogestrel (Kariva), 1 TAB PO DAILY Gabapentin (Neurontin), 100 MG PO TID Pantoprazole (Protonix), 40 MG PO QAM Scheduled PRN Fluticasone Propionate (Nasal) (Flonase Allergy Relief), 2 SPRAYS ANGELA BID PRN for Nasal Congestion Ondansetron Hcl (Zofran), 4 MG PO Q6H PRN for Nausea Physical Exam Vital Signs Date Time Temp Pulse Resp B/P (MAP) Pulse Ox O2 Delivery O2 Flow Rate FiO2 10/15/17 04:25 65 16 111/71 97 Room Air 10/15/17 03:10 67 16 114/73 99 Room Air 10/15/17 01:20 36.5 86 16 139/72 98 Room Air Physical Exam VITALS: Vitals are noted on the nurse's note and reviewed by myself. Vital signs stable. GENERAL: Well-developed, well-nourished, white female, who is in no acute distress and resting comfortably. Patient is cooperative with the examination. HEART: Regular rate and rhythm without murmurs gallops or rubs. LUNGS: Clear to auscultation bilaterally without wheezes, rales or rhonchi. No retractions or accessory muscle use. ABDOMEN: Positive normal bowel sounds x 4. Soft with positive right upper quadrant tenderness on palpation. No rebound or guarding. No lower abdominal tenderness. No CVA tenderness. MUSCULOSKELETAL: No muscle atrophy, erythema, or edema noted. Full range of motion in all extremities. Medical Decision & Procedures ER Provider Diagnostic Interpretation: Preliminary Findings Only See Final Report For Complete Findings US RUQ: No gallstones or sludge. No gallbladder wall thickening or pericholecystic fluid. Hypodensity seen within gallbladder wall measuring up to 4 mm, which is nonspecific. This is likely of no clinical significance. Common bile duct is within normal limits. Liver is mildly enlarged. Right kidney is unremarkable. Laboratory Results 10/15/17 01:30 Red Blood Count 4.19, Mean Corpuscular Volume 89.0, Mean Corpuscular Hemoglobin 31.5, Mean Corpuscular Hemoglobin Concent 35.4, Mean Platelet Volume 9.2, Neutrophils (%) (Auto) 39.2, Lymphocytes (%) (Auto) 40.8, Monocytes (%) (Auto) 10.8, Eosinophils (%) (Auto) 8.7, Basophils (%) (Auto) 0.3, Neutrophils # (Auto ) 2.40, Lymphocytes # (Auto) 2.50, Monocytes # (Auto) 0.66, Eosinophils # (Auto ) 0.53, Basophils # (Auto) 0.02 10/15/17 01:30 Test 10/15/17 01:30 White Blood Count 6.12 K/uL (4.8-10.8) Red Blood Count 4.19 M/uL (4.2-5.4) Hemoglobin 13.2 g/dL (12.0-16.0) Hematocrit 37.3 % (37-47) Mean Corpuscular Volume 89.0 fL (80-100) Mean Corpuscular Hemoglobin 31.5 pg (25-34) Mean Corpuscular Hemoglobin Concent 35.4 g/dl (32-36) Platelet Count 215 K/uL (130-400) Mean Platelet Volume 9.2 fL (7.4-10.4) Neutrophils (%) (Auto) 39.2 % Lymphocytes (%) (Auto) 40.8 % Monocytes (%) (Auto) 10.8 % Eosinophils (%) (Auto) 8.7 % Basophils (%) (Auto) 0.3 % Neutrophils # (Auto) 2.40 K/uL (1.4-6.5) Lymphocytes # (Auto) 2.50 K/uL (1.2-3.4) Monocytes # (Auto) 0.66 K/uL (0.11-0.59) Eosinophils # (Auto) 0.53 K/uL (0-0.5) Basophils # (Auto) 0.02 K/uL (0-0.2) RDW Standard Deviation 38.4 fL (36.4-46.3) RDW Coefficient of Variation 11.8 % (11.5-14.5) Immature Granulocyte % (Auto) 0.2 % Immature Granulocyte # (Auto) 0.01 K/uL (0.00-0.02) Urine Color YELLOW Urine Appearance CLEAR (CLEAR) Urine pH 5.5 (4.5-7.5) Urine Specific [place] 1.026 (1.000-1.030) Urine Protein NEG (NEG) Urine Glucose (UA) NEG (NEG) Urine Ketones NEG (NEG) Urine Occult Blood NEG (NEG) Urine Nitrite NEG (NEG) Urine Bilirubin NEG (NEG) Urine Urobilinogen NEG (NEG) Urine Leukocyte Esterase NEG (NEG) Anion Gap 9.0 mmol/L (3-11) Est Creatinine Clear Calc Drug Dose 117.8 ml/min Estimated GFR () 131.7 Estimated GFR (Non- 113.7 BUN/Creatinine Ratio 18.7 (10-20) Calcium Level 8.4 mg/dl (8.5-10.1) Total Bilirubin 0.3 mg/dl (0.2-1) Aspartate Amino Transf (AST/SGOT) 12 U/L (15-37) Alanine Aminotransferase (ALT/SGPT) 17 U/L (12-78) Alkaline Phosphatase 53 U/L (45-117) Total Protein 7.3 gm/dl (6.4-8.2) Albumin 3.2 gm/dl (3.4-5.0) Globulin 4.1 gm/dl (2.5-4.0) Albumin/Globulin Ratio 0.8 (0.9-2) Lipase 235 U/L (73-393) Medications Administered Medications (Trade) Dose Ordered Sig/Liza Route Start Time Stop Time Status Last Admin Dose Admin Sodium Chloride 1,000 ml @ 999 mls/hr Q1H1M ONCE IV 10/15/17 02:00 10/15/17 03:00 DC 10/15/17 02:08 999 MLS/HR Morphine Sulfate (MoRPHine SULFATE INJ) 4 mg NOW ONCE IV 10/15/17 02:00 10/15/17 02:01 DC 10/15/17 02:09 4 MG Ondansetron HCl (Zofran Inj) 4 mg NOW STAT IV 10/15/17 01:59 10/15/17 02:01 DC 10/15/17 02:08 4 MG Ketorolac Tromethamine (Toradol Inj) 30 mg NOW STAT IV 10/15/17 03:26 10/15/17 03:27 DC 10/15/17 03:33 30 MG ED Course Physical exam and history were performed. Nursing notes, EMR, and Medication List were personally reviewed. Patient appears to have right upper quadrant abdominal pain that began about 2 hours ago. She has had similar symptoms for the past several months. IV access was established and labs were obtained. Patient was hydrated with normal saline. She was given IV morphine and IV Zofran for comfort. Ultrasound was performed. The patient's blood work is as above and was reviewed. She does not have a significantly elevated white blood cell count, gross anemia, bandemia, or significant electrolyte imbalance. Lipase and transaminases are not diagnostic. Her ultrasound does not show acute cholecystitis or other etiology of her symptoms. She did require Toradol for additional relief of pain. I had a lengthy discussion with the patient regarding her findings today. She does not appear to have an acute surgical abdomen, and continues with only mild tenderness on palpation. I do suspect that she may have biliary colic, and it is reasonable for her to keep her appointment in the next few days with surgery. The patient is to monitor for worsening symptoms, and was otherwise invited back to the ER. She voiced understanding of this plan and rated her discomfort a 2/10 at the time of departure. The chart was completed utilizing [employer] Speech Voice Recognition Software. Grammatical errors, random word insertions, pronoun errors, and incomplete sentences are an occasional consequence of this system due to software limitations, ambient noise, and hardware issues. Any formal questions or concerns about the content, text, or information contained within the body of this dictation should be directly addressed to the provider for clarification. . Medical Decision Differential diagnosis: Etiologies such as appendicitis, diverticulitis, PUD, biliary pathology, UTI, pancreatitis, obstruction, mesenteric ischemia, aortic pathology, infections, inflammatory bowel disease, renal colic, as well as others were entertained. Impression Primary Impression: Right upper quadrant abdominal pain Departure Information Dispostion Home / Self-Care Condition GOOD Referrals Gisel Ramirez D.O. (PCP) Forms HOME CARE DOCUMENTATION FORM, IMPORTANT VISIT INFORMATION Patient Instructions My [facility] Additional Instructions You were seen and evaluated today on an emergency basis only. This is not a substitute for, or an effort to provide, complete comprehensive medical care. It is not possible to recognize and treat all injuries or illnesses in a single emergency department visit. For this reason it is recommended that you followup with General surgery on Tuesday as scheduled. For baseline pain relief you may alternate ibuprofen and acetaminophen every 4 hours for pain control. Take 600 mg ibuprofen (Advil) and then 4 hours later take 1000 mg acetaminophen (Tylenol). Do not take more than 3000 mg acetaminophen in a single day. You are welcome to return to the emergency department anytime with new, worsening, or concerning symptoms.
--- NOTE | 2017-10-15 06:02 | DIAGNOSTIC IMAGING REPORT ---
GALLBLADDER-ABD LIMITED CLINICAL HISTORY: RUQ abd pain nausea TECHNIQUE: Ultrasound COMPARISON STUDY: 09/09/2017 FINDINGS: No significant change from prior study. Normal gallbladder. Common bile duct 3 mm. Mild fatty infiltration of liver. Pancreas and right kidney unremarkable. IMPRESSION: Negative study. No change from the prior exam. The above report was generated using voice recognition software. It may contain grammatical, syntax or spelling errors. Electronically signed by: Richard Flynn M.D. 10/15/2017 6:01 AM Dictated Date/Time: 10/15/2017 5:59 AM
== END 2017-10-15 04:30 | disposition home or self-care (01) ==
LOC: C.EDB 01:17
DX: R10.11 Right upper quadrant pain (principal)

== ENCOUNTER → 2017-11-08 | Day surgery (SDC) | payer OTHER ==
[2017-10-28 14:45] VITALS: BMI 22.0
[~2017-11-08] VITALS: Ht 172.7 cm; Wt 65.9 kg
[~2017-11-08] MED LIST changes: +ACETAMINOPHEN 1000 MG/100 ML IV IV ONE; +ATROPINE SULFATE 0.1 MG/ML 5ML SYR IV PRN; +CHECK SCOPOLAMINE PATCH PLACEMENT SCH; -CHOL1TAB46 PO; +CHOL2000 PO; +CONRAY 60% 50 ML VIAL ONE; +DEXAMETHASONE SOD INJ 4 MG/ML VIAL ONE; +EpHEDrine SULFATE INJ 50 MG/ML AMP IV PRN; +FENTANYL CITRATE INJ 50 MCG/1 ML 2 ML VIAL ONE; +GLYCOPYRROLATE INJ 0.2 MG/ML VIAL ONE; +HYDROmorphone INJ 1 MG/ML SYR IV PRN; +IBUP-103 PO; +LACTATED RINGER'S 1000ML 1,000 ML IV SCH; +LIDOCAINE HCL 2% 2 ML VIAL (20MG/ML) ONE; +LIDOCAINE/EPINEPHRINE 1% 20 ML VIAL ONE; +MIDAZOLAM HCL 1 MG/ML 2ML VIAL ONE; +MoRPHine SULFATE 4 MG/ML 1 ML CARP\\VIAL IV PRN; +NEOSTIGMINE METHYLSULFATE 5 MG/5 ML SYR ONE; +NURSING VERBAL MED ORDER ONE; +ONDA4TAB10 SL; +ONDA4TAB46 PO; +ONDANSETRON INJ 2 MG/ML 2 ML VIAL IV PRN; +ONDANSETRON INJ 2 MG/ML 2 ML VIAL ONE; +OXYC-57 PO; +PROPOFOL IV EMULSION 10 MG/ML 20 ML VIAL IV ONE; +ROCURONIUM BROMIDE 10 MG/ML 5 ML VIAL IV ONE; +SCOPOLAMINE 1.5 MG TDSY TD ONE; +SCOPOLAMINE 1.5 MG TDSY TD SCH
--- NOTE | 2017-11-08 09:08 | History & Physical Bridge Note ---
H&P Re-Evaluation Bridge Note: I have examined the patient, reviewed the History & Physical and in the interval since the performance of the History & Physical I have noted the following changes of clinical significance: No changes notedall questions answered SO to be here post op
[2017-11-08 09:20] VITALS: BP 116/64; PULSE 88; TEMP 36.5; O2SAT 99; Ht 172.7 cm; Wt 65.9 kg
--- NOTE | 2017-11-08 09:44 | Discharge Instructions ---
Discharge Instructions Date of Service Nov 08, 2017. Visit Reason for Visit: Chronic Cholecystitis Discharge Discharge Diagnosis / Problem: laparoscopic cholecystectomy Discharge Goals Goal(s): Decrease discomfort Activity Recommendations Activity Limitations: as noted below Lifting Limitations: no more than 10 pounds Shower/Bathe: tomorrow Driving or Machine Use: resume 3 days after discharge Anesthesia . Post Anesthesia Instructions: If you have had General Anesthesia or IV Sedation: * Do not drive today. * Resume driving when surgeon permits. * Do not make important decisions or sign legal documents today. * Call surgeon for: 1. Temperature elevations greater than 101 degrees F. 2. Uncontrollable pain. 3. Excessive bleeding. 4. Persistent nausea and vomiting. 5. Medication intolerance (nausea, vomiting or rash). * For nausea and vomiting use only clear liquids such as: tea, soda, bouillon until nausea subsides, then gradually increase diet as tolerated. * If you have any concerns or questions, call your surgeon's office. If physician is unavailable and it is an emergency, call 911 or go to the nearest emergency room. . Instructions / Follow-Up Instructions / Follow-Up Dr. Chowdhury in 1 week, call [phone] if you do not already have an appt or have any questions Diet Recommendations Recommended Home Diet: no limitations Pending Studies Studies pending at discharge: no Medical Emergencies . Who to Call and When: Medical Emergencies: If at any time you feel your situation is an emergency, please call 911 immediately. . Non-Emergent Contact Non-Emergency issues call your: Surgeon Call Non-Emergent contact if: you have a fever, temperature is above 101.5, your pain is not controlled, you have any medication questions . . "Provider Documentation" section prepared by Kris Marshall. .
--- NOTE | 2017-11-08 10:32 | [facility] Post Operative Brief Note ---
Immediate Operative Summary Operative Date Nov 08, 2017. Pre-Operative Diagnosis Gallbladder sludge Post-Operative Diagnosis Same Procedure(s) Performed Laparoscopic Cholecystectomy with Cholangiogram Surgeon Dr Chowdhury Material Handling Technician Surgeon(s) Kris Marshall PA-C Estimated Blood Loss 3ml Findings See Below as preop Specimens A. Gallbladder Anesthesia Type General
--- NOTE | 2017-11-08 10:41 | DIAGNOSTIC IMAGING REPORT ---
CHOLANGIOGRAM O.R. CLINICAL HISTORY: 27 years-old Female presenting with CHOLANGIOGRAM. TECHNIQUE: Fluoroscopy was provided for an intraoperative cholangiogram status post cholecystectomy. Contrast was injected through the cystic duct remnant. COMPARISON: Ultrasound from 10/15/2017. FINDINGS: Gallbladder surgically absent. A catheter is in place in the cystic duct remnant, which is not dilated. The common bile duct is normal in course and caliber. There are no filling defects seen within the common bile duct to suggest a retained stone. Contrast extends into the small bowel. There is no intrahepatic bile duct dilatation. Fluoroscopy dosage (mGy): 0.24. Fluoroscopy time: 2.2 seconds. Number of fluoroscopic spot images: 2. IMPRESSION: Fluoroscopy provided for an intraoperative cholangiogram status post cholecystectomy. No filling defects within the common bile duct. Electronically signed by: Jayy Lee M.D. 11/08/2017 10:40 AM Dictated Date/Time: 11/08/2017 10:38 AM
[2017-11-08] MEDS: FENTANYL CITRATE INJ 50 MCG/1 ML 2 ML VIAL IV PRN ×3 (11:06→11:21)
--- NOTE | 2017-11-08 11:22 | OPERATIVE REPORT ---
DATE OF OPERATION: 11/08/2017 SURGEON: Edvin Chowdhury MD SHEAR SETTER: Kris Marshall PA-C PREOPERATIVE DIAGNOSIS: Chronic cholecystitis. POSTOPERATIVE DIAGNOSIS: Chronic cholecystitis. PROCEDURE: Laparoscopic cholecystectomy, intraoperative cholangiogram. SUMMARY: After induction of general endotracheal anesthesia, the patient's abdomen was prepped with Betadine solution and properly draped. I made a small transverse incision right above the umbilical dimpling, deepened through subcutaneous tissue, placed a Veress needle without any difficulty, followed by CO2, followed by a 5-mm trocar. We stayed away from the 2 puncture sites that she had above this opening where she had an umbilical jewelry in the past. Once we entered the abdomen securely, CO2 insufflated, camera followed, point of entry inspected, and no injury identified. Under direction visualization, we placed a 5-mm epigastric trocar with preemptive local analgesia 1% Xylocaine. We identified the gallbladder after placing two 3 mm subcostal ports with preemptive local analgesia. Gallbladder was placed under traction. We identified there were adhesions to the gallbladder from the mid portion down to the demond hepatis, which were taken down, some of these were tough adhesions, some filamentous adhesions. We dissected out the triangle of [place], identified the cystic duct which was quite long, we clamped it, we clipped it proximally. Once we identified the artery that was coming more anteriorly, doubly secured the artery and divided it. A small opening in the cystic duct was made. A #4 urethral catheter transversing the abdominal wall and a 14 Angiocath were tried to position in the cystic duct through the small opening we had just at the takeoff of the cystic duct, but we were unsuccessful. There may have been a valve there. Therefore, we went further down about 3-4 mm, made another small opening in this, we were able to place the cholangiocath. Serial x-rays were taken x2 which showed a very small cystic duct, quite long, very small common bile duct, but no obstruction, free flow into the duodenum. Cholangiocath was then removed. We choked on the cystic duct for another centimeter or so and doubly clipped and divided and we took out the gallbladder in an antegrade fashion leaving the posterior peritoneum as much as possible. There was one probably accessory artery coming up on the mid portion of the gallbladder coming from the liver that we doubly clipped it on the surface of the liver. The gallbladder was removed in an antegrade fashion completely. Hemostasis was satisfactory. We placed it in an Endopouch and taken out intact through the epigastric port. The subhepatic and suprahepatic area was then checked for hemostasis and appeared satisfactory. We placed the camera in the epigastric port through the 5 mm trocar and at umbilical area, there were no adhesions identified that we initially got in. We under direct visualization, took out the 3 mm subcostal trocars, the epigastric, and at last the umbilical trocar. A 4-0 Monocryl and Steri-Strips applied. The procedure was tolerated well by the patient. Estimated blood loss approximately 3 mL. The patient was taken to recovery in good condition. I attest to the content of the Intraoperative Record and any orders documented therein. Any exception s are noted below.
[2017-11-08 11:55] VITALS: BP 149/69; PULSE 75; TEMP 37.1; O2SAT 98
--- NOTE | 2017-11-08 12:00 | Anesthesiology Progress Note ---
Anesthesia Post Op Note Date & Time Nov 08, 2017 at 12:00 Vital Signs Pain Intensity: 2 Vital Signs Past 12 Hours Date Time Temp Pulse Resp B/P (MAP) Pulse Ox O2 Delivery O2 Flow Rate FiO2 11/08/17 11:25 36.5 81 17 124/74 (83) 97 Room Air 11/08/17 11:21 67 13 99 11/08/17 11:21 68 13 11/08/17 11:20 130/68 11/08/17 11:16 61 7 11/08/17 11:16 60 7 100 11/08/17 11:15 123/80 11/08/17 11:11 94 16 11/08/17 11:11 95 16 100 11/08/17 11:10 142/76 11/08/17 11:09 67 15 100 11/08/17 11:09 70 15 11/08/17 11:05 127/64 11/08/17 11:04 75 13 11/08/17 11:04 77 13 100 11/08/17 11:00 129/69 11/08/17 10:59 76 10 100 11/08/17 10:59 77 10 11/08/17 10:55 117/71 11/08/17 10:54 81 12 100 11/08/17 10:54 80 12 11/08/17 10:50 132/69 11/08/17 10:49 81 6 124/73 100 11/08/17 10:49 82 6 11/08/17 10:49 36.0 85 8 124/73 (99) 100 Oxymask 10 11/08/17 09:20 36.5 88 16 116/64 (81) 99 Room Air Notes Mental Status: alert / awake / arousable, participated in evaluation Pt Amnestic to Procedure: Yes Nausea / Vomiting: adequately controlled Pain: adequately controlled Airway Patency, RR, SpO2: stable & adequate BP & HR: stable & adequate Hydration State: stable & adequate Anesthetic Complications: no major complications apparent
[2017-11-08 12:23] VITALS: BP 115/75; PULSE 69; TEMP 36.8; O2SAT 97
[2017-11-08] MEDS: OXYCODONE/ACETAMINOPHEN 5-325 TAB PO PRN ×2 (12:29→13:36)
[2017-11-08 12:55] VITALS: BP 115/57; PULSE 66; TEMP 37; O2SAT 97
[2017-11-08 13:55] VITALS: BP 127/68; PULSE 76; TEMP 36.7; O2SAT 96
== END | disposition home or self-care (01) ==
LOC: C.ACU 08:44
PROVIDERS: ATTEND Surgery
DX: K81.1 Chronic cholecystitis (principal); J45.909 Unspecified asthma, uncomplicated; K21.9 Gastro-esophageal reflux disease without esophagitis; Z90.89 Acquired absence of other organs

== ENCOUNTER → 2018-03-01 | Outpatient (CLI) | payer OTHER ==
[~2018-03-01] MED LIST changes: -ACETAMINOPHEN 1000 MG/100 ML IV IV ONE; -ATROPINE SULFATE 0.1 MG/ML 5ML SYR IV PRN; +BCPILLS PO; -CHECK SCOPOLAMINE PATCH PLACEMENT SCH; -CONRAY 60% 50 ML VIAL ONE; -DEXAMETHASONE SOD INJ 4 MG/ML VIAL ONE; -EpHEDrine SULFATE INJ 50 MG/ML AMP IV PRN; -FENTANYL CITRATE INJ 50 MCG/1 ML 2 ML VIAL ONE; -GLYCOPYRROLATE INJ 0.2 MG/ML VIAL ONE; -HYDROmorphone INJ 1 MG/ML SYR IV PRN; -LACTATED RINGER'S 1000ML 1,000 ML IV SCH; -LIDOCAINE HCL 2% 2 ML VIAL (20MG/ML) ONE; -LIDOCAINE/EPINEPHRINE 1% 20 ML VIAL ONE; -MIDAZOLAM HCL 1 MG/ML 2ML VIAL ONE; -MoRPHine SULFATE 4 MG/ML 1 ML CARP\\VIAL IV PRN; -NEOSTIGMINE METHYLSULFATE 5 MG/5 ML SYR ONE; +NRN300 PO; -NURSING VERBAL MED ORDER ONE; -ONDA4TAB46 PO; -ONDANSETRON INJ 2 MG/ML 2 ML VIAL IV PRN; -ONDANSETRON INJ 2 MG/ML 2 ML VIAL ONE; -OXYC-57 PO; -PROPOFOL IV EMULSION 10 MG/ML 20 ML VIAL IV ONE; -ROCURONIUM BROMIDE 10 MG/ML 5 ML VIAL IV ONE; -SCOPOLAMINE 1.5 MG TDSY TD ONE; -SCOPOLAMINE 1.5 MG TDSY TD SCH
--- NOTE | 2018-03-01 09:28 | DIAGNOSTIC IMAGING REPORT ---
ABDOMEN COMPLETE (US) HISTORY: Pain PROTEINURIA,ABD PAIN. COMPARISON: 10/15/2017 FINDINGS: Pancreas: The pancreas demonstrates a normal echotexture. Liver: Unremarkable. Gallbladder: Surgically removed CBD: 3 mm Kidneys: No hydronephrosis. Spleen: Normal in size. Aorta: Normal in caliber. IVC: Patent. IMPRESSION: Normal study post cholecystectomy. The above report was generated using voice recognition software. It may contain grammatical, syntax or spelling errors. Electronically signed by: Richard Flynn M.D. 03/01/2018 9:27 AM Dictated Date/Time: 03/01/2018 9:26 AM
== END | disposition home or self-care (01) ==
LOC: C.ULTR 08:10
PROVIDERS: ATTEND Student in an Organized Health Care Education/Training Program
DX: R10.9 Unspecified abdominal pain (principal); R80.9 Proteinuria, unspecified

== ENCOUNTER 2018-03-06 20:20 | Emergency (ER) | payer OTHER ==
[~2018-03-06] VITALS: Ht 172.7 cm; Wt 67.0 kg
[~2018-03-06 20:20] MED LIST changes: -BCPILLS PO; -NRN300 PO
[2018-03-06 20:23] VITALS: TEMP 37; Ht 172.7 cm; Wt 67.0 kg
[2018-03-06] MEDS ORDERED: NRN300 PO (20:41)
[2018-03-06] MEDS ORDERED: BCPILLS PO (20:41)
[2018-03-06] MEDS ORDERED: ONDANSETRON INJ 2 MG/ML 2 ML VIAL IV STA (21:24)
[2018-03-06] MEDS ORDERED: KETOROLAC TROMETHAMINE 30 MG/ML VIAL IV STA (21:24)
[2018-03-06] MEDS ORDERED: SODIUM CHLORIDE 0.9% 1000ML 1,000 ML IV STA (21:24)
[2018-03-06] MEDS ORDERED: MoRPHine SULFATE 4 MG/ML 1 ML CARP\\VIAL IV STA (21:24)
--- NOTE | 2018-03-06 21:55 | EMERGENCY ROOM VISIT NOTE ---
History Report prepared by Ora: Alex Seay Under the Supervision of: Dr. Barbra Montgomery M.D. First contact with patient: 21:00 Chief Complaint: URINARY SYMPTOMS Stated Complaint: PELVIC PAIN,DIZZY,NAUSEA Nursing Triage Summary: Pt reports left sided pelvic pain, dizziness, nausea. Pt reports that a past few weeks she felt like she had a UTI and was tested. Results were negative. Pt was told to come here if symptoms persisted. Pt reports urgency and frequency with urination. History of Present Illness The patient is a 28 year old female who presents to the Emergency Room with complaints of constant and sharp pelvic pain beginning last week. She states the pain is located above the pubic bone and radiates to the sides and to the back. The patient notes the pain is worsened if she moves or bends over. She also notes having dizziness and nausea. She denies abnormal vaginal discharge or itching. She states that last week she saw her PCP to check for a UTI as she was also having urinary urgency and frequency. She states she was given an interior pelvic exam, PAP smear, and abdominal ultrasound. The patient reports that she has not taken anything for pain and is unable to take NSAIDs due to a bad stomach lining. She denies a history of endometriosis. The patient states that she last had intercourse a couple of weeks ago, but does not believe she is at risk of STDs. She reports that she is on control and had a test last week with negative results. She notes that her last period was 3 weeks ago. She reports she had her gallbladder removed in October. Source of History: patient Onset: last week Position: pelvis, back Quality: sharp Timing: constant Modifying Factors (Worsening): movement Associated Symptoms: + nausea Note: dizziness Review of Systems See HPI for pertinent positives & negatives. A total of 10 systems reviewed and were otherwise negative. Past Medical & Surgical Surgical Problems: (1) History of cholecystectomy (2) Hx of appendectomy (3) No significant past surgical history Family History Cancer Lung disease Social History Smoking Status: Never Smoker Alcohol Use: occasionally Marital Status: single Housing Status: lives with family Occupation Status: employed Current/Historical Medications Scheduled Control Pills ( Control Pills), 1 TAB PO QPM Cholecalciferol (Vitamin D3), 2,000 INTER.UNIT PO QAM Gabapentin (Gabapentin), 300 MG PO TID Pantoprazole (Protonix), 40 MG PO QAM Scheduled PRN Fluticasone Propionate (Nasal) (Flonase Allergy Relief), 2 SPRAYS ANGELA DAILY PRN for Allergy Symptoms Allergies Coded Allergies: Cyclobenzaprine (Verified Allergy, Unknown, RASH, 03/06/18) Ibuprofen (Verified Adverse Reaction, Intermediate, STOMACH IRRITATION- "DOCTOR RECOMMENDED NOT TO TAKE"., 03/06/18) Physical Exam Vital Signs Date Time Temp Pulse Resp B/P (MAP) Pulse Ox O2 Delivery O2 Flow Rate FiO2 03/06/18 23:40 70 18 105/61 100 Room Air 03/06/18 22:58 89 17 96/51 99 Room Air 03/06/18 21:44 95 18 105/46 99 Room Air 03/06/18 20:23 37.0 95 18 112/75 99 Room Air Physical Exam Vital signs reviewed. General: Well-appearing female, in no significant distress. HEENT: No scleral icterus, PERRLA, neck supple. Atraumatic. Cardiovascular: Regular rate and rhythm, no extra sounds. Pulmonary: Clear to auscultation bilaterally, normal work of breathing. Abdomen: Soft, tender to suprapubic region, nondistended, positive bowel sounds. Musculoskeletal: Atraumatic, no peripheral edema. Neurologic: Patient awake alert and oriented x 3, full strength in all 4 extremities. Cranial nerves 2 through 12 grossly intact. Pelvic: Deferred Skin: Warm, dry, no rash Medical Decision & Procedures ER Provider Diagnostic Interpretation: Radiology results as stated below per my review and radiologist interpretation: PELVIC COMPLETE NON OB CLINICAL HISTORY: 28 years-old Female presenting with pelvic pain, , history of abortions, last menstrual. 02/07/2018, no abnormal bleeding, on contraceptive and, pelvic and lower abdominal pain. TECHNIQUE: Real-time grayscale and color and spectral Doppler ultrasound imaging of the pelvis was performed first using a transabdominal probe and subsequently transvaginal for better characterization. COMPARISON: Ultrasound from [address] from 06/15/2017. FINDINGS: Uterus: An arcuate morphology is suggested given the convex fundal contour on prior CT. This is a normal variant. Anteverted anteflexed. The uterus measures 7.0 x 3.2 x 4.0 cm. Endometrial stripe measures 5 mm in thickness. Endometrium normal-appearing. Cervix normal. Right adnexa: Right ovary normal. Right ovary measures 3.5 x 2.1 x 1.9 cm. Normal color Doppler flow and arterial and venous waveforms within the ovarian parenchyma. Left adnexa: Left ovary normal. Left ovary measures 3.4 x 2.0 x 2.0 cm. Normal color Doppler flow and arterial and venous waveforms within the ovarian parenchyma. Other: Trace free fluid, likely physiologic. IMPRESSION: No significant abnormality identified within the pelvis. No ovarian torsion. Electronically signed by: Jayy Lee M.D. 03/06/2018 10:32 PM Dictated Date/Time: 03/06/2018 10:[address] ABDOMEN & PELVIS With Contrast: No acute findings. Prior cholecystectomy. Appendix is surgically absent. Trace fluid in the pelvic cul-de-sac is likely physiologic. Moderate stool throughout the colon, consider constipation. Radiologist: Alvin Jara DO Study ready at 23:40 and initial results transmitted at 00:03 Laboratory Results 03/06/18 21:24 Red Blood Count 4.44, Mean Corpuscular Volume 92.3, Mean Corpuscular Hemoglobin 30.9, Mean Corpuscular Hemoglobin Concent 33.4, Mean Platelet Volume 10.2, Neutrophils (%) (Auto) 54.0, Lymphocytes (%) (Auto) 27.4, Monocytes (%) (Auto) 10.8, Eosinophils (%) (Auto) 6.9, Basophils (%) (Auto) 0.7, Neutrophils # (Auto ) 3.30, Lymphocytes # (Auto) 1.67, Monocytes # (Auto) 0.66, Eosinophils # (Auto ) 0.42, Basophils # (Auto) 0.04 03/06/18 21:24 Test 03/06/18 21:00 03/06/18 21:24 Urine Color YELLOW Urine Appearance CLOUDY (CLEAR) Urine pH 7.5 (4.5-7.5) Urine Specific [place] 1.018 (1.000-1.030) Urine Protein NEG (NEG) Urine Glucose (UA) NEG (NEG) Urine Ketones NEG (NEG) Urine Occult Blood NEG (NEG) Urine Nitrite NEG (NEG) Urine Bilirubin NEG (NEG) Urine Urobilinogen NEG (NEG) Urine Leukocyte Esterase NEG (NEG) Urine WBC (Auto) 1-5 /hpf (0-5) Urine RBC (Auto) 5-10 /hpf (0-4) Urine Hyaline Casts (Auto) 1-5 /lpf (0-5) Urine Epithelial Cells (Auto) >30 /lpf (0-5) Urine Bacteria (Auto) NEG (NEG) White Blood Count 6.10 K/uL (4.8-10.8) Red Blood Count 4.44 M/uL (4.2-5.4) Hemoglobin 13.7 g/dL (12.0-16.0) Hematocrit 41.0 % (37-47) Mean Corpuscular Volume 92.3 fL (80-100) Mean Corpuscular Hemoglobin 30.9 pg (25-34) Mean Corpuscular Hemoglobin Concent 33.4 g/dl (32-36) Platelet Count 188 K/uL (130-400) Mean Platelet Volume 10.2 fL (7.4-10.4) Neutrophils (%) (Auto) 54.0 % Lymphocytes (%) (Auto) 27.4 % Monocytes (%) (Auto) 10.8 % Eosinophils (%) (Auto) 6.9 % Basophils (%) (Auto) 0.7 % Neutrophils # (Auto) 3.30 K/uL (1.4-6.5) Lymphocytes # (Auto) 1.67 K/uL (1.2-3.4) Monocytes # (Auto) 0.66 K/uL (0.11-0.59) Eosinophils # (Auto) 0.42 K/uL (0-0.5) Basophils # (Auto) 0.04 K/uL (0-0.2) RDW Standard Deviation 41.1 fL (36.4-46.3) RDW Coefficient of Variation 12.1 % (11.5-14.5) Immature Granulocyte % (Auto) 0.2 % Immature Granulocyte # (Auto) 0.01 K/uL (0.00-0.02) Urine Test NEG (NEG) Anion Gap 7.0 mmol/L (3-11) Est Creatinine Clear Calc Drug Dose 121.7 ml/min Estimated GFR () 137.6 Estimated GFR (Non- 118.7 BUN/Creatinine Ratio 18.8 (10-20) Calcium Level 8.5 mg/dl (8.5-10.1) Total Bilirubin 0.3 mg/dl (0.2-1) Direct Bilirubin < 0.1 mg/dl (0-0.2) Aspartate Amino Transf (AST/SGOT) 15 U/L (15-37) Alanine Aminotransferase (ALT/SGPT) 21 U/L (12-78) Alkaline Phosphatase 52 U/L (45-117) Total Protein 7.4 gm/dl (6.4-8.2) Albumin 3.7 gm/dl (3.4-5.0) Laboratory results per my review. Medications Administered Medications (Trade) Dose Ordered Sig/Liza Route Start Time Stop Time Status Last Admin Dose Admin Ketorolac Tromethamine (Toradol Inj) 30 mg NOW STAT IV 03/06/18 21:24 03/06/18 21:27 DC 03/06/18 21:42 30 MG Morphine Sulfate (MoRPHine SULFATE INJ) 4 mg NOW STAT IV 03/06/18 21:24 03/06/18 21:27 DC 03/06/18 21:41 4 MG Ondansetron HCl (Zofran Inj) 4 mg NOW STAT IV 03/06/18 21:24 03/06/18 21:27 DC 03/06/18 21:42 4 MG Sodium Chloride 1,000 ml @ 999 mls/hr Q1H1M STAT IV 03/06/18 21:24 03/06/18 22:24 DC 03/06/18 21:24 999 MLS/HR ED Course 2121: Past medical records reviewed. The patient was evaluated in room C4. A complete history and physical examination was performed. 2123: Ordered Sodium Chloride 1000 ml @ 999 mls/hr IV, Zofran 4 mg IV, Morphine Sulfate 4 mg IV, Toradol 30 mg IV. 0004: Upon reevaluation, the patient appeared to have improvement of her symptoms. I discussed findings with her. She verbalized agreement of the treatment plan. She was discharged home. Medical Decision Differential diagnosis: Etiologies such as appendicitis, diverticulitis, PUD, biliary pathology, UTI, pancreatitis, obstruction, mesenteric ischemia, aortic pathology, infections, inflammatory bowel disease, renal colic, as well as others were entertained. This patient was evaluated and appeared to be in dosing of records from the abdominal ultrasound that was performed earlier were reviewed. Patient apparently had a pelvic exam performed by her PCP. Ultrasound of the pelvis was performed and reveals no acute abnormality. CT scan of the abdomen pelvis was performed and reveals an increased fecal load. Laboratory evaluation is fairly unrevealing and states she does agree that she has difficulty with constipation. It was recommended that she use MiraLAX as needed for BM, increase the fiber and water in her diet and follow-up with her PCP. She was given a dose of IV Toradol for continued discomfort. She will follow-up with her PCP/[facility] and return to the ED for worsening of symptoms or any medical concerns. Medication Reconcilliation Current Medication List: was personally reviewed by me Blood Pressure Screening Patient's blood pressure: Low blood pressure felt to be situational Impression Primary Impression: Constipation Additional Impression: Suprapubic abdominal pain Scribe Attestation The scribe's documentation has been prepared under my direction and personally reviewed by me in its entirety. I confirm that the note above accurately reflects all work, treatment, procedures, and medical decision making performed by me. Departure Information Dispostion Home / Self-Care Referrals Gisel Ramirez D.O. (PCP) Forms HOME CARE DOCUMENTATION FORM, IMPORTANT VISIT INFORMATION Patient Instructions My [facility] Additional Instructions Diagnosis: Constipation, suprapubic pain Please increase the fiber and water in your diet. Tylenol 650 mg every 6 hours as needed for pain. MiraLAX 1 capful daily as needed for a bowel movement. Follow-up with your primary care physician for reevaluation this week. Return to the ED for worsening of symptoms or any medical concerns. Problem Qualifiers
[2018-03-06 22:20] LABS: ALBUMIN 3.7 gm/dl (3.4-5.0); ALKALINE PHOSPHATASE 52 U/L (45-117); ALT/SGPT 21 U/L (12-78); AST/SGOT 15 U/L (15-37); BASO % 0.7 %; BASO ABS # 0.04 K/uL (0-0.2); BLOOD UREA NITROGEN 13 mg/dl (7-18); CALCIUM 8.5 mg/dl (8.5-10.1); CARBON DIOXIDE 27 mmol/L (21-32); EOS % 6.9 %; EOS ABS # 0.42 K/uL (0-0.5); GLUCOSE 82 mg/dl (70-99); HEMOGLOBIN 13.7 g/dL (12.0-16.0); IG# 0.01 K/uL (0.00-0.02); LYMPH % 27.4 %; LYMPH ABS # 1.67 K/uL (1.2-3.4); MEAN CELL VOLUME 92.3 fL (80-100); MEAN CORPUSCULAR HEMOGLOBIN 30.9 pg (25-34); MEAN CORPUSCULAR HGB CONC 33.4 g/dl (32-36); MEAN PLATELET VOLUME 10.2 fL (7.4-10.4); MONO % 10.8 %; MONO ABS # 0.66 K/uL (0.11-0.59); PLATELET COUNT 188 K/uL (130-400); POTASSIUM 3.7 mmol/L (3.5-5.1); RED CELL DISTRIBUTION WIDTH CV 12.1 % (11.5-14.5); RED CELL DISTRIBUTION WIDTH SD 41.1 fL (36.4-46.3); SODIUM 139 mmol/L (136-145); TOTAL PROTEIN 7.4 gm/dl (6.4-8.2)
--- NOTE | 2018-03-06 22:33 | DIAGNOSTIC IMAGING REPORT ---
PELVIC COMPLETE NON OB CLINICAL HISTORY: 28 years-old Female presenting with pelvic pain, , history of abortions, last menstrual. 02/07/2018, no abnormal bleeding, on contraceptive and, pelvic and lower abdominal pain. TECHNIQUE: Real-time grayscale and color and spectral Doppler ultrasound imaging of the pelvis was performed first using a transabdominal probe and subsequently transvaginal for better characterization. COMPARISON: Ultrasound from [address] from 06/15/2017. FINDINGS: Uterus: An arcuate morphology is suggested given the convex fundal contour on prior CT. This is a normal variant. Anteverted anteflexed. The uterus measures 7.0 x 3.2 x 4.0 cm. Endometrial stripe measures 5 mm in thickness. Endometrium normal-appearing. Cervix normal. Right adnexa: Right ovary normal. Right ovary measures 3.5 x 2.1 x 1.9 cm. Normal color Doppler flow and arterial and venous waveforms within the ovarian parenchyma. Left adnexa: Left ovary normal. Left ovary measures 3.4 x 2.0 x 2.0 cm. Normal color Doppler flow and arterial and venous waveforms within the ovarian parenchyma. Other: Trace free fluid, likely physiologic. IMPRESSION: No significant abnormality identified within the pelvis. No ovarian torsion. Electronically signed by: Jayy Lee M.D. 03/06/2018 10:32 PM Dictated Date/Time: 03/06/2018 10:29 PM
[2018-03-06] MEDS ORDERED: OPTIRAY 320 IV PRN (23:30)
[2018-03-06 23:40] VITALS: BP 105/61; PULSE 70; O2SAT 100
--- NOTE | 2018-03-07 06:50 | DIAGNOSTIC IMAGING REPORT ---
ABD/PELVIS IV CONTRAST ONLY CT DOSE: 277.08 mGy.cm HISTORY: Pain suprapubic pain TECHNIQUE: Multiaxial CT images of the abdomen and pelvis were performed following the use of intravenous contrast. A dose lowering technique was utilized adhering to the principles of ALARA. COMPARISON STUDY: 06/15/2017 FINDINGS: The lung bases are clear. The liver, spleen, gallbladder, pancreas, kidneys, and adrenal glands are within normal limits. No bowel wall thickening or obstruction. The pelvic organs are unremarkable. No suspicious lytic or blastic osseous lesions. Prior appendectomy. Prior cholecystectomy. Mild increase in fecal load throughout the colon. IMPRESSION: 1. Mild fecal stasis. 2. Otherwise negative abdomen and pelvis post appendectomy and cholecystectomy. The above report was generated using voice recognition software. It may contain grammatical, syntax or spelling errors. Electronically signed by: Richard Flynn M.D. 03/07/2018 6:48 AM Dictated Date/Time: 03/07/2018 6:42 AM
== END 2018-03-07 00:11 | disposition home or self-care (01) ==
LOC: C.EDB 20:22 → C.EDC 03-07 00:11
DX: K59.00 Constipation, unspecified (principal); R10.2 Pelvic and perineal pain; Z79.3 Long term (current) use of hormonal contraceptives; Z79.899 Other long term (current) drug therapy; Z88.8 Allergy status to other drugs, medicaments and biological substances

== ENCOUNTER 2018-03-13 13:42 | Emergency (ER) | payer OTHER ==
[~2018-03-13] VITALS: Ht 172.7 cm; Wt 66.6 kg
[~2018-03-13 13:42] MED LIST changes: +BCPILLS PO; -GABA-112 PO; -IBUP-103 PO; -KRV28 PO; +NRN300 PO; -ONDA4TAB10 SL
[2018-03-13 13:46] VITALS: TEMP 36.5; Ht 172.7 cm; Wt 66.6 kg
[2018-03-13] MEDS ORDERED: ACETAMINOPHEN 500 MG TAB PO STA (15:09)
--- NOTE | 2018-03-13 15:44 | EMERGENCY ROOM VISIT NOTE ---
ED Visit Note First contact with patient: 14:58 CHIEF COMPLAINT: Right leg pain HISTORY OF PRESENTING ILLNESS: This is a 28-year-old female who presents to the emergency department with complaint of pain in her right middle and posterior thigh that extends down into her calf. She first started noticing the pain yesterday. She states the pain is worse with walking, feels like a cramping muscle and is sensitive to touch, currently rates the pain as 4/10. She has not tried any medications or treatments for the pain. She feels that her right leg may be slightly swollen when compared to her left leg. She states that she has a friend who had similar symptoms and found that she had a blood clot, she is here because she is worried about a blood clot. The patient does take oral contraceptives and reports recent increased immobility due to being off of work , and states that she recently drove back from [place] 2 weeks ago. She denies any fevers, chills, chest pain, shortness of breath, cough or hemoptysis , dizziness, syncope, abdominal pain, back pain, urinary symptoms, or unusual rash. She denies any history of blood clots and denies any family history of clotting disorders. REVIEW OF SYSTEMS: A complete 10 point review of systems was reviewed with the patient with pertinent positives and negatives as per history of present illness. All else were negative. PAST MEDICAL HISTORY: No significant past medical or surgical history. SOCIAL HISTORY: Lives at home. She denies tobacco use. ALLERGIES: Reviewed in chart, see below. PHYSICAL EXAM: CONSTITUTIONAL: Pleasant and cooperative. No acute distress. Well appearing and well nourished. HEENT: Normocephalic, atraumatic. Pupils equal, round and reactive to light, EOMI. TMs normal. Pharynx normal. NECK: Supple, full active range of motion without discomfort. RESPIRATORY: Clear to auscultation bilaterally with no wheezing, crackles, rhonchi or stridor. Equal expansion bilaterally. CARDIOVASCULAR: Regular rate and rhythm with no murmurs, rubs or gallops. Normal peripheral perfusion. No edema. GASTROINTESTINAL: Soft, nontender, nondistended. No palpable masses or HSM. Bowel sounds present in all quadrants. MUSCULOSKELETAL: Mild tenderness to palpation along the right posterior and medial thigh as well as some tenderness behind the right knee and posterior calf to palpation. Homans sign negative. Full range of motion of all joints without discomfort. INTEGUMENTARY: No rash or other significant dermatologic conditions noted. NEUROLOGIC: Alert and oriented X 4 with normal affect. Normal strength and sensation in all 4 extremities. No focal neurologic deficits noted. Normal speech. Normal gait observed. ED COURSE AND MEDICAL DECISION MAKING: CC: Patient presenting with complaint of right thigh and calf pain DIFFERENTIAL DIAGNOSIS: Includes, but not limited to DVT, cellulitis, muscle sprain/strain, Kim's cyst, lumbar radiculopathy/sciatica, among others. IMAGING: RIGHT LOWER EXTREMITY VENOUS DOPPLER CLINICAL HISTORY: Right leg pain and swelling. COMPARISON STUDY: No previous studies for comparison. TECHNIQUE: Sonography of the deep venous system of the right lower extremity was performed. Compression and augmentation were evaluated. FINDINGS: The right common femoral, superficial femoral and popliteal veins were compressible. Augmentation was normal. Flow was shown within the deep calf vessels. IMPRESSION: No evidence of deep venous thrombus within the right lower extremity. MEDICATION RECONCILIATION: I attest that I have personally reviewed the patient 's current medication list. INITIAL VITAL SIGNS REVIEW: I reviewed the patient's initial vital signs and interpret them as follows: T: Afebrile; BP: Normotensive; HR: Mildly tachycardic; RR: Within normal limit; Pulse Ox: Within normal limits on room air. Blood pressure screening: The patient was found to have normal blood pressure on screening and does not require follow-up for repeat blood pressure check. SUMMARY: Patient was evaluated at bedside, history and physical exam performed. Patient is alert and oriented, in no acute distress, resting calmly in the stretcher. Mild tenderness to palpation of the posterior right thigh and calf, reproduces complaint. No erythema, swelling, or warmth appreciated on exam. Orders were placed at bedside for venous duplex of the right leg to evaluate for DVT. Patient was given Tylenol for pain. Imaging reviewed as above, negative for DVT. Patient reassessed multiple times throughout ED stay, she has remained stable and her pain is improved with the Tylenol. Patient was updated on all results and plan for discharge, she was encouraged to follow with her PCP for continued management of her leg pain. I do suspect that she has a strained muscle, encouraged her to rest, ice and heat, and consider physical therapy if the pain is not improving. Patient was also given strict return precautions should her symptoms worsen, she verbalized understanding. Patient was discharged home in stable condition and ambulatory. Problem List Surgical Problems: (1) No significant past surgical history Status: Chronic Current/Historical Medications Scheduled Control Pills ( Control Pills), 1 TAB PO QPM Cholecalciferol (Vitamin D3), 2,000 INTER.UNIT PO QAM Gabapentin (Gabapentin), 300 MG PO TID Pantoprazole (Protonix), 40 MG PO QAM Scheduled PRN Fluticasone Propionate (Nasal) (Flonase Allergy Relief), 2 SPRAYS ANGELA DAILY PRN for Allergy Symptoms Allergies Coded Allergies: Cyclobenzaprine (Verified Allergy, Unknown, RASH, 03/13/18) Ibuprofen (Verified Adverse Reaction, Intermediate, STOMACH IRRITATION- "DOCTOR RECOMMENDED NOT TO TAKE"., 03/13/18) Vital Signs Date Time Temp Pulse Resp B/P (MAP) Pulse Ox O2 Delivery O2 Flow Rate FiO2 03/13/18 18:12 78 14 97/63 100 Room Air 03/13/18 16:27 64 14 98/69 100 03/13/18 13:46 36.5 94 16 107/77 98 Room Air Medications Administered Medications (Trade) Dose Ordered Sig/Liza Route Start Time Stop Time Status Last Admin Dose Admin Acetaminophen (Tylenol Tab) 1,000 mg NOW STAT PO 03/13/18 15:09 03/13/18 15:10 DC 03/13/18 15:32 1,000 MG Departure Information Impression Primary Impression: Musculoskeletal pain of right thigh Dispostion Home / Self-Care Condition GOOD Referrals Gisel Ramirez D.O. (PCP) Patient Instructions ED Muscle Pain Leg Cramps, My [facility] Additional Instructions You have been evaluated and treated in the emergency department today for your right leg pain. Ultrasound of your right leg today shows no evidence of a blood clot (DVT). Take it easy for the next few days, no strenuous activity, heavy lifting, or bending/twisting motions, to allow your leg to rest. Alternate heat and ice for comfort. After heat, you may do gentle stretching and massage to the area. You may take ibuprofen 600 mg every 6 hours or Tylenol 650 mg every 6 hours as needed for pain. For best results, alternate between Tylenol and ibuprofen every 3-4 hours. Follow up with your PCP in the next few days for further management. You may benefit from physical therapy. Please return to the ER if any problems with bowel or bladder function, numbness in your groin, high fevers, severe abdominal pain or back pain, or if loss of feeling/movement of legs. Work Instructions Return To Work: 1 day
--- NOTE | 2018-03-13 17:13 | DIAGNOSTIC IMAGING REPORT ---
RIGHT LOWER EXTREMITY VENOUS DOPPLER CLINICAL HISTORY: Right leg pain and swelling. COMPARISON STUDY: No previous studies for comparison. TECHNIQUE: Sonography of the deep venous system of the right lower extremity was performed. Compression and augmentation were evaluated. FINDINGS: The right common femoral, superficial femoral and popliteal veins were compressible. Augmentation was normal. Flow was shown within the deep calf vessels. IMPRESSION: No evidence of deep venous thrombus within the right lower extremity. Electronically signed by: Torito Pena M.D. 03/13/2018 5:12 PM Dictated Date/Time: 03/13/2018 5:12 PM
[2018-03-13 18:12] VITALS: BP 97/63; PULSE 78; O2SAT 100
== END 2018-03-13 18:21 | disposition home or self-care (01) ==
LOC: C.EDB 13:44 → C.EDD 18:21
DX: M79.651 Pain in right thigh (principal); Z79.3 Long term (current) use of hormonal contraceptives; Z79.899 Other long term (current) drug therapy; Z88.8 Allergy status to other drugs, medicaments and biological substances